=== PATIENT | female | born 1950 | race Asian ===

== ENCOUNTER 2024-12-11 03:24 | Inpatient (IN) | payer OTHER, SELFPAY ==
[2024-12-10 21:47] VITALS: BP 161/50; BMI 22.5
[2024-12-10 21:49] VITALS: BP 168/48
[2024-12-10 21:50] VITALS: BP 161/50
[2024-12-10 21:51] VITALS: BP 149/62
[2024-12-10 21:52] VITALS: BP 137/98
[2024-12-10 22:06] LABS: % Basophils 0.4 % (0-2); % Eosinophils 0.8 % (0-6); % Immature Granulocytes 0.4 % (0-0.5); % Lymphocytes 19.2 % (20.5-51.1); % Monocytes 10.4 % (1.7-9.3); % Neutrophils 68.8 % (42.2-75.2); Absolute Eosinophils 0.1 10^3/uL (0-0.7); Absolute Lymphocytes 1.9 10^3/uL (1.2-3.4); Absolute Neutrophils 6.7 10^3/uL (1.4-6.5); Hematocrit 32.8 % (37.0-47.0); Hemoglobin 10.7 g/dL (12.0-16.0); Mean Corp Hgb Conc. 32.6 g/dL (33.0-37.0); Mean Corpuscular Hgb 29.8 pg (27.0-31.0); Mean Corpuscular Volume 91.4 fL (81.0-99.0); Nucleated Red Blood Cells % 0 %; Platelet Count 441 10^3/uL (130-400); Red Blood Cell Count 3.59 10^6/uL (4.20-5.40); Red Cell Dist. Width 13.9 % (11.5-14.5); White Blood Cell Count 9.8 10^3/uL (4.8-10.8)
[2024-12-10 22:13] LABS: ALT (SGPT) 34 U/L (0-35); AST (SGOT) 43 U/L (14-36); Albumin 3.6 g/dl (3.5-5.0); Alkaline Phosphatase 97 U/L (38-126); Blood Urea Nitrogen 21 mg/dl (7-17); Calcium 9.3 mg/dl (8.4-10.2); Carbon Dioxide 28 mmol/L (22-30); Chloride 97 mmol/L (98-107); Estimated Creatinine Clearance 55 ml/min; Glucose 200 mg/dl (70-99); Potassium 3.9 mmol/L (3.5-5.1); Sodium 135 mmol/L (135-145); Total Bilirubin 0.3 mg/dl (0.2-1.3); Total Protein 6.2 g/dl (6.3-8.2); eGFR > 60.00
[2024-12-10 22:30] LABS: Troponin I 0.035 ng/ml
--- NOTE | 2024-12-10 22:53 | ED.GENMED ---
History of Present Illness
General
Chief Complaint: Breathing Problem
Source: patient
Time Seen by Provider: 12/10/24 22:43
History of Present Illness
History of Present Illness:
74-year-old female presents to the emergency room complaining of shortness of breath. Patient is currently at [facility] where she is receiving rehab after a hospitalization here at [place] for DKA, multiple areas of embolic stroke and acute
kidney injury among other issues. While at rehab she became suddenly short of breath today. She has pain in her chest. Pain is worse with deep inspiration. No fever. Patient denies any history of lung disease.
Phy Exam
Physical Exam
Physical Exam:
General: Awake, Alert, Oriented X3. No acute distress.
Vitals: unremarkable
Head: Atraumatic
Eyes: Pupils equal, EOMI
Throat: Airway intact, no exudates
Neck: Trachea midline
Lungs: Clear and equal b/l
Heart: Regular rate, no murmurs
Abd: Soft, Nontender, No pulsatile mass
Neuro: Grossly nonfocal
Skin: Warm, dry, no rash
Extremities: pulses equal b/l, no edema
Scores
Heart Failure Risk
Heart Failure Risk Score: Not Applicable
Course
Orders/Labs/Results
Orders:
Orders
12/10/24 21:45
Electrocardiogram (*1) Urgent
Reason for Study: Chest Pain
Cardiac Monitoring- Treatment ONCE
EKG- Treatment ONCE
12/10/24 21:53
CMP [Comprehensive Metabolic Panel] Urgent
Complete Blood Count/With Diff Urgent
NT-proBNP Urgent
Comment: ADD ON
Troponin I Urgent
12/10/24 22:54
CR Chest Portable - 1 View Urgent
Comment:
Reason For Exam: acute onset sob
Reason Study Needs to be Portable: Patient Unstable
12/11/24 00:30
CT Chest PE Study Urgent
Reason For Exam: acute onset sob
12/11/24 01:14
Ondansetron Injectable [Zofran] 4 mg IV NOW STA
Pantoprazole [Protonix IV] 80 mg IV NOW STA
12/11/24 03:03
Admit/Transfer Patient As Directed
Co-Sign Provider:
Level of Care: Inpatient admission
Assign to:: Telemetry
Physician / Group: hospitalist
Diagnosis: chest pain
Reason for Telemetry: Chest Pain syndromes
Date to Stop Telemetry: 12/13/24
Time to Stop Telemetry: 11:00
Reason for Hospitalization: dysphagia/gi dysmotility
Expected length of stay greater than two midnights?: Yes
ELOS- Estimated Length of Stay in days: 2
I certify the patient meets the requirements for IP care: Yes
PRN Pain Medication Management As Directed
May give lesser potent ordered pain med per pt: Yes
preference::
Protocol:: Medication orders for pain may be administered in a
manner that supports deferring to patient preference
when the pt is:
- Requesting an ordered lesser potent pain medication.
Least to most potent pain medications are defined
as: acetaminophen < NSAID < tramadol < opioids
(morphine, oxycodone, hydromorphone).
- Requesting a lesser dose of the same medication IF
ORDERED.
- Requesting a less intrusive route of administration
if both routes are prescribed by the provider (PO <
IV).
12/11/24 03:04
Code Status As Directed
Resuscitation Status: Full Code
12/11/24 04:03
HYDROmorphone [Dilaudid] 0.25 mg IV Q4HPRN PRN
Insulin Aspart Corrective Low [Novolog Flexpen-Low Resistance] See Protocol SC Q6H
Lactated Ringers [Lr] 1,000 ml IV 100 mls/hr
Ondansetron Injectable [Zofran] 4 mg IV Q6HPRN PRN
12/11/24 04:03
GASTROINTESTINAL CONSULT Routine
Consulting Provider: Jm Milner
Was physician already notified: Yes
Reason for consult: dysphagia, esophageal dilation filled w/ debris, as is stomach, bloody emes
Activity As Directed
Activity Level: With Assistance
Bedside Glucose Monitoring As Directed
Frequency: Q6H
Elevate HOB [Head of Bed-Restrictions] As Directed
Elevation Level: 45 degrees
INT (Intravenous Needle Therapy) As Directed
Comment: Place 2 IV catheters of the largest bore possible until stable
Pneumatic Compression Sleeves As Directed
Type: Knee high
Vital Signs As Directed
Frequency: Per unit guidelines
DX Deep Vein Thrombosis Video Routine
12/11/24 04:40
Type+Screen Urgent
Basic Metabolic Panel Routine
PTT Urgent
Comment: If not done in the ED
Prothrombin Time Routine
Troponin I Q6H
12/11/24 Breakfast
NPO
Allow oral meds: No
Allow clear liquids: Sips of Clears
NPO with Ice Chips: Yes
12/11/24 08:00
Pantoprazole [Protonix IV] 40 mg IV BID
12/11/24 10:03
Troponin I Q6H
12/11/24 11:15
H&H Q8H
12/11/24 16:03
Troponin I Q6H
12/11/24 19:15
H&H Q8H
12/13/24 11:00
DC Protocol for Telemetry ONCE
Abnormal Lab Results
12/10/24
21:53
RBC 3.59 L 10^6/uL
(4.20-5.40)
Hgb 10.7 L g/dL
(12.0-16.0)
Hct 32.8 L %
(37.0-47.0)
MCHC 32.6 L g/dL
(33.0-37.0)
Plt Count 441 H 10^3/uL
(130-400)
Absolute Neuts (auto) 6.7 H 10^3/uL
(1.4-6.5)
Absolute Monos (auto) 1.0 H 10^3/uL
(0.1-0.6)
Lymphocytes % 19.2 L %
(20.5-51.1)
Monocytes % 10.4 H %
(1.7-9.3)
Chloride 97 L mmol/L
(98-107)
BUN 21 H mg/dl
(7-17)
Creatinine 0.4 L mg/dL
(0.6-1.0)
Glucose 200 H mg/dl
(70-99)
AST 43 H U/L
(14-36)
Troponin I 0.035 H* ng/ml
Total Protein 6.2 L g/dl
(6.3-8.2)
12/10/24 21:53
12/10/24 21:53
Vital Signs
Initial and Last Documented VS:
Initial Vital Signs
Pulse Resp
101 32
12/10/24 21:45 12/10/24 21:45
Last Documented Vital Signs
Temp Pulse Resp BP Pulse Ox
97.9 F 117 24 130/91 100
12/11/24 04:19 12/11/24 04:19 12/11/24 04:19 12/11/24 04:19 12/11/24 04:19
MDM/Problems Addressed
Differential Diagnosis Includes:
Acute coronary syndrome, PE, pneumothorax, GERD
MDM/Problems Addressed:
Patient presents seemingly quite uncomfortable from chest pain. She is moaning and saying she is short of breath. Given her recent hospitalization I was concerned about PE. CT of the chest was performed. She has a turns out she has significant
dilation of the esophagus and the esophagus is filled with debris and liquid. Stomach also has these findings. Perhaps the patient has a gastric outlet obstruction. Patient will require hospitalization and GI workup.
*Radiology
Radiology exam reviewed: radiology read reviewed
*Pulse Oximetry
Patient hypoxic: no
*EKG
Interpreted by ED Provider?: Yes
Heart Rate: 99
Rate: normal
Rhythm: sinus
[place]: normal axis
Interval: normal interval
QRS Pattern: normal QRS
Ischemia: non-specific ST changes
*Technology Lab Teacher Interpretation
Rate: normal
Interpretation: normal
Rhythm: sinus
*Critical Care Note
Total Time (30-74mins, 75-104mins- exclusive of procedures): Not Applicable
ED Attending Note
-
Portions of this chart may have been created with voice recognition software.� Occasional wrong word or��sound alike� substitutions may have occurred due to the inherent limitations of voice recognition software.
Discharge Plan
Departure
Patient Disposition: Admit
Date of Disposition: 12/11/24
Time of Disposition: 02:46
Admit to: Med/Surg
Presentation/result/management discussed w/ accepting MD/DO: Hospitalist
Condition: Fair
Discharge Problem:
Chest pain, Esophageal abnormality, Hematemesis
Interventions
Interventions:
*Risk Screen - Suicide Last Done: 12/11/24 04:39
*General Assessment Last Done: 12/10/24 21:47
*Neglect/Abuse Screening Last Done: 12/10/24 21:47
ED- Fall Risk Assessment Last Done: 12/10/24 22:18
*ED COVID-19 Vaccine History Last Done: 12/10/24 21:47
*Nursing Disposition Last Done: 12/11/24 04:00
ED- Cardiac Assessment Last Done: 12/10/24 22:18
ED- Pulmonary Assessment Last Done: 12/10/24 22:18
Discharge Date and Time
Discharge Date/Time: 12/11/24 04:00
[2024-12-10 23:00] VITALS: BP 123/57
[2024-12-10 23:50] LABS: NT-proBNP 40.6 pg/ml
[2024-12-11] VITALS (12 sets, daily range): BP systolic 120–158; BP diastolic 45–94; BMI 21.8
[2024-12-11] MEDS: PROTONIX IV 80 MG IV (01:18)
[2024-12-11] MEDS: ZOFRAN 4 MG IV (01:25)
--- NOTE | 2024-12-11 01:32 | EDRN ---
Patient reported feeling sick, then started throwing up bright red blood including blood clots, informed Dr. Morales who was in to see and assess patient and meds were ordered and given.
--- NOTE | 2024-12-11 02:49 | HPS.HSE ---
Family Physician
-
Family Physician: NOT KNOW UNKNOWN - PT DOES
Chief Complaint
-
Chest discomfort and shortness of breath.
History of Present Illness
This is a 74-year-old female past medical history of insulin-dependent diabetes, hypertension, hyperlipidemia, recent CVA with residual left sided hemiparesis in the setting of sepsis due to urinary tract infection who now presents to the emergency
department from rehab facility with chest pain.
Patient reports sudden onset of chest discomfort this evening associated with nausea. She denied any diaphoresis. She denied any vomiting. Patient denies any abdominal pain. She denies any fevers or chills but states she always feels hot.
Patient denies having any headache. In the ED she was found to have esophageal dilation on imaging. She herself denies any history of GERD. She denies history of dysphagia or odynophagia. She denies any recent history of chest pain with food
ingestion but feels like the food is sitting in her abdomen for a while. Patient denies any melena or hematochezia. She denies any hematemesis.
During last admission which was complicated the patient will had a suspicion for GI bleed. Due to that she was not placed on Plavix for a stroke but only on aspirin. She is not on any anticoagulation. She denies starting any new medication
recently.
In the emergency department she was afebrile, blood pressure was 120/70 with a pulse of 115. She was satting 100% on room air. ECG showed normal sinus rhythm at a rate of 90 with a left axis deviation, no acute T wave changes. Troponin was 0.035.
CBC was unremarkable with hemoglobin unchanged from prior. Sodium 135 potassium 3.9 normal BUN and creatinine. A CT of the chest shows no evidence of PE but has dilated esophagus containing food debris throughout, stomach also filled with fluid
debris no visualized aspiration although recent aspiration risk.
While I was interviewing patient she had multiple episodes of nausea dry heaves and coughing up blood that appears to be coming from the upper esophagus. No coffee-ground's.
Medical History
Past Medical History
Past Medical History: Reports CVA, HTN and IDDM
Past Surgical History: Reports Other
Social History
Tobacco: Non-smoker
Alcohol: None
Drug: None
Personal:
Living: With Family
Employment: Retired
Family History
Family History: Not pertinent
Allergies / Home Medications
Allergies reflects when Allergies were last updated in [facility].
Home Medications with original date entered in [facility]
Allergy/Medication List:
Allergies
Allergy/AdvReac Type Severity Reaction Status Date / Time
No Known Allergies Allergy Verified 12/10/24 21:52
Home Medications
atorvastatin 40 mg tablet 40 mg PO DAILY 12/05/24
insulin glargine 100 unit/mL subcutaneous solution 23 unit SC HS 12/05/24
insulin lispro 100 unit/mL subcutaneous pen 1 sliding scale dose SC AC 12/05/24
insulin lispro 100 unit/mL subcutaneous pen 8 unit SC AC 12/05/24
losartan 25 mg tablet (Cozaar) 25 mg PO HS 12/05/24
metformin 500 mg tablet 500 mg PO DAILY 12/05/24
oxycodone 5 mg tablet 5 mg PO Q6HPRN PRN moderate pain 12/05/24
pantoprazole 40 mg tablet,delayed release 40 mg PO DAILY 12/05/24
polyethylene glycol 3350 17 gram oral powder packet (Miralax) 17 g PO DAILY 12/05/24
acetaminophen 325 mg tablet 650 mg PO Q4HPRN PRN mild pain 12/10/24
ascorbic acid (vitamin C) 500 mg tablet (Vitamin C) 500 mg PO DAILY 12/10/24
aspirin 81 mg chewable tablet 81 mg PO DAILY 12/10/24
clotrimazole 1 % topical cream 1 applic topical BID 12/10/24
docusate sodium 100 mg capsule (Colace) 100 mg PO BID 12/10/24
enoxaparin 40 mg/0.4 mL subcutaneous syringe 40 mg SC QPM 12/10/24
zinc sulfate 50 mg zinc (220 mg) capsule 50 mg PO DAILY 12/10/24
Review of Systems
-
History Source: Patient
Constitutional: Reports No Symptoms
EENT: Reports No Symptoms
Respiratory: Reports Hemoptysis and Trouble Breathing
Cardiac: Reports Chest Pain
Abdomen/GI: Reports Nausea and Vomiting; Denies Diarrhea, Constipated, Bloody Stools or Black Stools
: Reports No Symptoms
Musculoskeletal: Reports No Symptoms
Skin: Reports No Symptoms
Neurological: Reports No Symptoms
Endocrine: Reports No Symptoms
Hematologic/Lymphatic: Reports No Symptoms
Psych: Reports No Symptoms
Physical Exam
Vital Signs
Vital Signs
Temp Pulse Resp BP Pulse Ox
97.8 F 115 21 120/70 100
12/10/24 21:47 12/11/24 02:30 12/11/24 02:30 12/11/24 02:00 12/11/24 01:30
Physical Exam
General: Well Developed and No Apparent Distress
HEENT: NormoCephalic, Anicteric, Moist mucous membranes and Atraumatic
Respiratory: Clear
Cardiac: S1/S2, Regular Rhythm and Tachycardia
Breast: Deferred by me
GI: Soft, Non Tender, Non Distended and Normal Bowel Sounds
Rectal: Deferred by Provider
Genito-urinary: Deferred by me
Musculoskeletal: No Clubbing, No Cyanosis and No Edema
Skin: Warm
Neuro: AO x 3, Cranial Nerves Intact, No Sensory Deficits and Other (left sided weakness in upper and lower extremity); No Slurred Speech or Facial Droop
Hematologic/Lymphatic: No Lymphadenopathy
Psych: Calm
Laboratory Results
-
12/10/24 21:53
12/10/24 21:53
Laboratory Results
Total Bilirubin 0.3 mg/dl (0.2-1.3) 12/10/24 21:53
AST 43 U/L (14-36) H 12/10/24 21:53
ALT 34 U/L (0-35) 12/10/24 21:53
Alkaline Phosphatase 97 U/L (38-126) 12/10/24 21:53
Troponin I 0.035 ng/ml H* 12/10/24 21:53
Data Reviewed
-
CT Scan: Report Reviewed by me
Medical Tests (Nuc Med, Echo, EKG etc): Image Personally Visualized and interpreted
Lab Data: Labs Reviewed by me
Old Records: Reviewed
Impression/Plan
-
IMPRESSION:
74 y.o recently admitted with urosepsis complicated by acute bilateral infarcts left parietal�occipital infarcts and probable small right cerebellar infarct with mostly left sided weakness and currently on aspirin 81/statin presents to ED with
atypical chest pain associated with swallowing food but not water and found to have residual food debris in esophagus and stomach. ECG is non-ischemic. Troponin is 0.03. No PE. No aspiration pneumonia on CT. Afebrile. No evidence of
perforation or rupture, extraluminal gas or fluid collection.
PLAN:
1. Chest pain - Chest pain is likely related to the esophageal disease and possibly khoa saenz tear, no perforation. She is bringing up red blood mixed with clear fluid with vomiting. She does not have projectile vomiting. Trop 0.03 but
unlikely ischemic.
- admit to telemetry
- trend cardiac enzymes
- start pain control and antiemetics
- given solid material in esophagus and stomach, holding off any NG tube placement
- suspect khoa saenz tear, with food bezoa versus esophageal dysmotility or delayed gastric emptying
- no food or drinks
2. Esophageal dysmotility
- NPO for now
- clears and sips ok, no solid tablets
- GI consultation for possible EGD
- PPI IV bid for now
- antimetics as above
- gentle hydration
3. CVA - on aspirin statin
- meds on hold for now due to upper gi bleeding and npo
- serial examinations
4. DM II -
- hold metformin
- insulin sliding scale
DVT PPX - heparin sq
Code status - full code
--- NOTE | 2024-12-11 03:43 | EDRN ---
Helped patient with phone to call her
[2024-12-11] MEDS: LR 1000 IV ×2 (04:46→15:17)
[2024-12-11 05:14] LABS: APTT 29.9 Sec (23.4-35.0); INR 1.09; PT 14.4 Sec (11.4-14.6)
[2024-12-11 05:20] LABS: Blood Urea Nitrogen 39 mg/dl (7-17); Calcium 8.9 mg/dl (8.4-10.2); Carbon Dioxide 26 mmol/L (22-30); Chloride 99 mmol/L (98-107); Estimated Creatinine Clearance 55 ml/min; Glucose 418 mg/dl (70-99); Hematocrit 25.2 % (37.0-47.0); Hemoglobin 7.8 g/dL (12.0-16.0); Potassium 4.5 mmol/L (3.5-5.1); Sodium 134 mmol/L (135-145); eGFR > 60.00
[2024-12-11 05:32] LABS: Troponin I 0.037 ng/ml
--- NOTE | 2024-12-11 05:53 | PTCARENOTE ---
Addendum entered by Gretchen Suarez RN 12/11/24 06:09:
Patient's blood sugar- 418, updated house [employer]
Original Note:
Patient's hgb- 7.8 from 10.7. 97.9, 115,130/91,24,100 on 3L. Notified house provider. No new orders.
[2024-12-11 06:30] LABS: Glucose - Point of Care 387 mg/dl (70-99)
[2024-12-11] MEDS: NOVOLOG FLEXPEN-LOW RESISTANCE 5 UNITS SC (06:35)
--- NOTE | 2024-12-11 07:06 | CON.GI ---
Addendum entered and electronically signed by Jm Milner MD 12/11/24 12:29:
I saw and examined the patient.
The SUPERVISOR POST WAVE's note was reviewed and I agree with the note.
- chest pain /nausea/vomiting/hematemesis on admission . currently denies any symptoms
-CT with concern for distention of thoracic esophagus/stomach with retained food material
-anemia with drop after admission
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
-NIDDM with poorly controlled disease and recent hbg A1C 13.4 with recent DKA
-recent reported heme + stool
-recent fecal impaction and diarrhea with concern for overflow
-recent UTI
-hx NSAID use
-mild elevated troponin
plan
Patient currently denies any GI symptoms. Etiology for her admitting symptoms can be multifactorial-considering recent CVA/uncontrolled diabetes with possible gastroparesis/possible esophageal dysmotility/cannabis use etc. Hematemesis after
vomiting can be secondary to esophagitis versus Farhana-Garcia tear. Currently resolved.
I had a long discussion with the patient reviewing benefits and risk of EGD evaluation. No prior EGD or colonoscopy. patient will be at high risk with recent CVA 11/28/2024. Patient verbalized understanding and would like to hold off on future EGD
(understanding possibility of missing esophageal lesion including neoplasm) .
She would like to try liquid diet. Okay to start with clear liquid
Continue monitor H&H
Continue PPI twice daily for now
Good glycemic control
Avoid cannabis
will follow
Addendum entered and electronically signed by ROXANNE Vera 12/11/24 10:02:
pt with mild left sided weakness
Original Note:
Consultation
-
Date/Time Consultation Requested: 12/11/24 0430
Date/Time Consultation Performed: 12/11/24 0730
Requesting Provider: Beatriz Myrick MD
Performing Provider: Michelle Kriney, Jm OLIVEIRA MD
Reason for Consultation: nausea, vomiting abdominal CT
Medical History
Chief Complaint / HPI
Chief Complaint: nausea, vomiting, hematemesis
History of Present Illness:
Pt is a 74yo with hx HTN, hyperlipidemia, NIDDM with recent [facility] stay with several recent medical issues and treatment at [facility] including DKA with FBS 600's and hbg A1C 13.4 (admits to non compliance with medication), dark heme +
stools, diarrhea (c-diff neg), rectal pain fecal impaction, recent fungal infection, sepsis with ELIDIA, b/l hydro, UTI (ecoli), and change of mental status with CVA and left hemiph (11/28/24). Per rehabs notes pt was taking frequent NSAIDs prior to
admission with no documentation of any GI testing completed and denies prior EGD/colon. She was noted 11/28 with left hemiparesis and HCT noted evolving CVA. She now has been admitted to [facility] on 12/05. She presents to ER with onset of chest pain
with nausea. On admission CT Chest completed neg PE or dissection. Moderate dilation of the thoracic esophagus and stomach, with retained food material throughout the esophagus. Esophagus measures 3 cm in diameter. Findings may related to
esophageal motility disorder, intestinal obstruction, and/or obstructing lesion. Moderate coronary arterial calcification and mild bibasilar subsegmental atelectasis.
In review with patient she admits chest pain was 8/10 on admission now 1/10 and feeling much improved. She admits to vomiting prior to admission and noted some red blood with vomiting. She also admits to dark stools seen during recent
admission and constipation with impaction. She currently denies issues with abdominal pain,, diarrhea or constipation. No prior EGD or colonoscopy in past. 12/07 obstruction series with mild to moderate fecal residue.
Past Medical History
Past Medical History: CVA, HTN, Hypercholesterolemia, NIDDM and Other (UTI)
Social History
Tobacco: Former Smoker
Alcohol: Former
Drug: Marijuana (last 2 months ago )
Personal:
Living: With Family
Employment: Retired
Family History
Family History: Reviewed & Not Pertinent
Allergies / Home Medications
Allergy/AdvReac Type Severity Reaction Status Date / Time
No Known Allergies Allergy Verified 12/10/24 21:52
�Medication �Instructions �Recorded
atorvastatin 40 mg tablet 40 mg PO DAILY 12/05/24
insulin glargine 100 unit/mL 23 unit SC HS 12/05/24
subcutaneous solution
insulin lispro 100 unit/mL 1 sliding scale dose SC AC 12/05/24
subcutaneous pen
insulin lispro 100 unit/mL 8 unit SC AC 12/05/24
subcutaneous pen
losartan 25 mg tablet (Cozaar) 25 mg PO HS 12/05/24
metformin 500 mg tablet 500 mg PO DAILY 12/05/24
oxycodone 5 mg tablet 5 mg PO Q6HPRN PRN moderate pain 12/05/24
pantoprazole 40 mg tablet,delayed 40 mg PO DAILY 12/05/24
release
polyethylene glycol 3350 17 gram 17 g PO DAILY 12/05/24
oral powder packet (Miralax)
acetaminophen 325 mg tablet 650 mg PO Q4HPRN PRN mild pain 12/10/24
ascorbic acid (vitamin C) 500 mg 500 mg PO DAILY 12/10/24
tablet (Vitamin C)
aspirin 81 mg chewable tablet 81 mg PO DAILY 12/10/24
clotrimazole 1 % topical cream 1 applic topical BID 12/10/24
docusate sodium 100 mg capsule 100 mg PO BID 12/10/24
(Colace)
enoxaparin 40 mg/0.4 mL 40 mg SC QPM 12/10/24
subcutaneous syringe
zinc sulfate 50 mg zinc (220 mg) 50 mg PO DAILY 12/10/24
capsule
Review of Systems
-
History Source: Patient
Constitutional: Reports Weight Loss
EENT: Reports No Symptoms
Respiratory: Reports No Symptoms
Cardiac: Reports Chest Pain
Abdomen/GI: Reports Nausea, Vomiting, Diarrhea (recent now improved ), Constipated (recent now improved ) and Other (hematemesis )
: Reports No Symptoms
Musculoskeletal: Reports No Symptoms
Skin: Reports No Symptoms
Neurological: Reports Weakness and Other (recent left hemiparesis )
Endocrine: Reports No Symptoms
Hematologic/Lymphatic: Reports Bleeding
Vital Signs
Temp Pulse Resp BP Pulse Ox
97.9 F 117 24 130/91 100
12/11/24 04:19 12/11/24 04:19 12/11/24 04:19 12/11/24 04:19 12/11/24 04:19
Physical Exam
Exam
General: Well Developed, Well Nourished and No Apparent Distress
HEENT: Normocephalic and Anicteric
Respiratory: Clear
Cardiac: Other (tachy)
GI: Soft, Non Tender and Non Distended
Musculoskeletal: No Clubbing and No Cyanosis
Skin: Warm and Dry
Neuro: Awake, Alert and AO x 3
Psych: Calm
Results
WBC 9.8 10^3/uL (4.8-10.8) 12/10/24 21:53
Hgb 7.8 g/dL (12.0-16.0) L D 12/11/24 04:40
Hct 25.2 % (37.0-47.0) L 12/11/24 04:40
MCV 91.4 fL (81.0-99.0) 12/10/24 21:53
Plt Count 441 10^3/uL (130-400) H 12/10/24 21:53
Absolute Neuts (auto) 6.7 10^3/uL (1.4-6.5) H 12/10/24 21:53
PT 14.4 Sec (11.4-14.6) 12/11/24 04:40
INR 1.09 12/11/24 04:40
APTT 29.9 Sec (23.4-35.0) 12/11/24 04:40
Sodium 134 mmol/L (135-145) L 12/11/24 04:40
Potassium 4.5 mmol/L (3.5-5.1) 12/11/24 04:40
Chloride 99 mmol/L (98-107) 12/11/24 04:40
Carbon Dioxide 26 mmol/L (22-30) 12/11/24 04:40
BUN 39 mg/dl (7-17) H 12/11/24 04:40
Creatinine 0.6 mg/dL (0.6-1.0) 12/11/24 04:40
Calcium 8.9 mg/dl (8.4-10.2) 12/11/24 04:40
Total Bilirubin 0.3 mg/dl (0.2-1.3) 12/10/24 21:53
AST 43 U/L (14-36) H 12/10/24 21:53
ALT 34 U/L (0-35) 12/10/24 21:53
Alkaline Phosphatase 97 U/L (38-126) 12/10/24 21:53
Diagnostic Image Results:
12/11/24 CT Chest PE Study
1. No evidence of pulmonary embolism or thoracic aortic dissection.
2. Moderate dilation of the thoracic esophagus and stomach, with retained food material throughout the esophagus. Esophagus measures 3 cm in diameter. Findings may related to esophageal motility disorder, intestinal obstruction, and/or obstructing
lesion. Consider upper GI endoscopy.
3. Moderate coronary arterial calcification. Please correlate with symptoms of and risk factors for coronary artery disease, with further workup as clinically appropriate.
4. Mild bibasilar subsegmental atelectasis, otherwise clear lungs.
12/10/24- CXR
1. Mild bibasilar subsegmental atelectasis.
2. Otherwise clear lungs.
CR Obstruct Series W/pa Chest
No evidence of bowel obstruction or ileus. No free air. Mild to moderate fecal residue.
Probable enlarged fibroid uterus. Consider follow-up ultrasound.
Prior GI Procedures:
EGD: none
Colonoscopy: none
Assessment / Plan
-
Pt is a 74yo with hx HTN, hyperlipidemia, NIDDM with recent [facility] stay with several recent medical issues and treatment at [facility] including DKA with FBS 600's and hbg A1C 13.4 (admits to non compliance with medication), dark heme +
stools, diarrhea (c-diff neg), rectal pain fecal impaction, recent fungal infection, sepsis with ELIDIA, b/l hydro, UTI (ecoli), and change of mental status with CVA and left hemiph (11/28/24). Per rehabs notes pt was taking frequent NSAIDs prior to
admission with no documentation of any GI testing completed and denies prior EGD/colon. She was noted 11/28 with left hemiparesis and HCT noted evolving CVA. She now has been admitted to [facility] on 12/05. She presents to ER with onset of chest pain
with nausea. On admission CT Chest completed neg PE or dissection. Moderate dilation of the thoracic esophagus and stomach, with retained food material throughout the esophagus. Esophagus measures 3 cm in diameter. Findings may related to
esophageal motility disorder, intestinal obstruction, and/or obstructing lesion. Moderate coronary arterial calcification and mild bibasilar subsegmental atelectasis.
-chest pain
-nausea/vomiting/hematemesis
-CT with concern for distention of thoracic esophagus/stomach with retained food material
-anemia with drop after admission
-recent CVA
-NIDDM with poorly controlled disease and recent hbg A1C 13.4 with recent DKA
-recent reported heme + stool
-recent fecal impaction and diarrhea with concern for overflow
-recent UTI
-hx NSAID use
-mild elevated troponin
other med problems:
-HTN
-hyperlipidemia
occasional Marijuana use
PLAN:
etiology symptoms with chest pain, nausea, hematemesis with concern for gastroparesis with nausea/vomiting MW tear with marked uncontrolled DM, UGI bleed- gastritis (some drop in hbg and elevated BUN), food impaction, underlying malignant process
vs other
reviewed and offered EGD with recent hematemesis -- reviewed risk/benefit with recent CVA
pt wishes to hold off-- she is aware if not proceeding malignancy could be missed --
Pt is agreeable to follow up outpatient when improved to discuss vs consider IP if further vomiting or drop in hbg
trend hbg with some drop after admission 10.7- 7.89 for repeat at 11:15 this am
can also consider formal gastric emptying scan to rule out gastroparesis
will trial clear diet and advance to gastroparesis diet as tolerated
if persist vomiting consider adding reglan
add miralax daily with recent fecal impaction to prevent constipation
cont PPI BiD
discussed need for continued optimization of glucose control as FBS still in 400's this am as likely underlying gastroparesis
also discussed avoidance of marijuana use -- as will add to hyperemesis issue ( last use 2 months ago)
trend troponin with increase on admission
consider f/u US per medical team with enlarged fibroid on recent abdominal imaging
-
-
Thank you for consultation and allowing me to participate in the patient's care. Please call the refrigeration insulator GI physician during the after hours with any questions or concerns.
[2024-12-11] MEDS: PROTONIX IV 40 MG IV ×2 (08:30→19:54)
[2024-12-11] MEDS: NSS (PRESERVATIVE FREE) 10 ML IV ×2 (08:31→19:54)
--- NOTE | 2024-12-11 10:21 | PTCARENOTE ---
Family member of this pt called unit for an update on her, UC informed her that she was not on the contact list. She asked that the primary contact be updated, called primary contact, voicemail left.
[2024-12-11 10:33] LABS: Glucose - Point of Care 320 mg/dl (70-99)
[2024-12-11] MEDS: MIRALAX 17 GRAMS PO (10:44)
[2024-12-11] MEDS: NOVOLOG FLEXPEN-LOW RESISTANCE 4 UNITS SC (10:45)
[2024-12-11 11:18] LABS: Hemoglobin 7.5 g/dL (12.0-16.0)
[2024-12-11 11:48] LABS: Troponin I 0.048 ng/ml
--- NOTE | 2024-12-11 13:02 | W.PN.HOSP.TC ---
Addendum entered and electronically signed by Alfonso Springer DO 12/11/24 13:07:
#elevated troponin
-Likely nonischemic myocardial injury
-Did have CP but more likely esophageal in nature
-No ECG changes, troponin trend not consistent with ACS
-Will trend troponin to peak with serial ECG
Original Note:
Today's Communication/Plan
-
Bowel regimen per GI
CLD
Repeat CBC in afternoon
Hemoglobin goal >7
Assessment / Plan
Assessment / Plan
#GI dysmotility/bezoar
-Differentials include but are not limited to diabetic gastroparesis versus esophageal dysmotility versus neurologic
-CT scan with distention of the thoracic esophagus and stomach with retained food
-No NGT placed due to significant solid component of retained food matter
-Was seen by GI this morning, patient deferred against EGD; started on bowel regimen and PPI
Plan
-C/W Bowel regimen per GI
-C/W PPI twice daily IV
-Consider EGD if patient amenable
-Serial abd exams, CLD
#Acute on chronic normocytic anemia
-Hemoglobin dropped from near 11-7.8 after admission
-No obvious signs of rectal bleeding though is high risk with bezoar
-Was started on IV PPI twice daily, currently on CLD
-Evaluated by GI, patient does not want EGD now as above
Plan
-Type and cross obtained, consent for blood obtained
-Maintain 2 large peripheral bore IVs
-Continue IV PPI twice daily
-Repeat CBC at 3 PM, transfuse for hemoglobin <7
#Type 2 diabetes mellitus
-Recent A1c >13%; no documented microvascular disease though likely
-Possibly with diabetic gastroparesis due to the above issues
-Home medications include Lantus, lispro, ISS, metformin
-Continued on insulin regimen with sliding scale here
-BG goal 140-180
#Primary HTN
-Home medications include losartan 25 mg
-No known history of hypertensive systemic disease
-Blood pressure currently adequate
#HLD
-Likely ASCVD history with CVA, presumed cerebrovascular etiology
-Home medication includes high intensity
#H/O CVA
-Recent hospitalizations for CVA complicated by left hemiparesis
-Suspect this may be contributing to her GI dysmotility as above
-Home medications include aspirin and high intensity statin
-No history of AF/AFL; presumed cerebrovascular cause
DVT prophylaxis: SCDs
Diet: CLD for now
CODE STATUS: Full
Anticipated Discharge: > 48 hours
Subjective/Interval History
-
Date of Service: December 11, 2024
Seen and examined at the bedside. No acute events reported overnight. AFVSS.
Was seen by GI this morning and offered EGD which she does not want. Started on bowel regimen. Hemoglobin did drop from near 11-7.8. Type and cross obtained as was consent for blood
Denies any new complaints. States she feels generally well. Denies history of dysphagia
Objective Data
-
Labs:
Laboratory Results
12/11/24 12/11/24 12/11/24
04:40 11:05 15:00
WBC Pending
Hgb 7.8 L D 7.5 L Pending
Hct 25.2 L 23.0 L Pending
Plt Count Pending
PT 14.4
INR 1.09
APTT 29.9
Sodium 134 L
Potassium 4.5
Chloride 99
Carbon Dioxide 26
BUN 39 H
Creatinine 0.6
Glucose 418 H
Calcium 8.9
12/11/24
19:15
WBC
Hgb Pending
Hct Pending
Plt Count
PT
INR
APTT
Sodium
Potassium
Chloride
Carbon Dioxide
BUN
Creatinine
Glucose
Calcium
Vital Signs:
Vital Signs
Temp Pulse Resp BP Pulse Ox
98.3 F 106 18 130/48 100
12/11/24 11:31 12/11/24 11:31 12/11/24 11:31 12/11/24 11:31 12/11/24 11:31
Review of Systems
-
History Source: Patient
All other systems: Reviewed and negative
Physical Exam
-
General: Well Developed, No Apparent Distress, Comfortable and Other (Frail-appearing)
HEENT: Normocephalic, Atraumatic, Moist Mucous Membranes and Anicteric
Respiratory: Clear to Auscultation and Non Labored Respirations
Cardiac: S1/S2 and Tachycardic; Negative Irregular Rhythm, Murmur, Rub or Gallop
GI: Soft, Nontender, Nondistended and Normal Bowel Sounds
Musculoskeletal: No Clubbing, No Cyanosis and No Edema
Skin: Warm, Dry and Normal Turgor; Negative Rash
Neuro: AO x 3 and Nonfocal/Grossly Intact
Psych: Calm
Data Reviewed
-
Labs: Labs Reviewed by me and Discussed with Physician (Gastroenterology)
--- NOTE | 2024-12-11 14:55 | CM ---
Reviewed the chart notes and spoke with the patient and her spouse at the bedside. The patient resides with her spouse in a two story home with one step to enter. The patient reports no DME/VN/SNF. The patient confirmed her PCP is Dr. Sincere Rogel
Lew Ireland and pharmacy of choice is [facility]. CM continues to be available to patient/family and is monitoring medical plan for needs at discharge.
Plan: Discharge to home when medically stable. No needs anticipated at this time.
[2024-12-11 17:16] LABS: Glucose - Point of Care 456 mg/dl (70-99)
[2024-12-11 17:18] LABS: Glucose - Point of Care 492 mg/dl (70-99)
[2024-12-11 17:42] LABS: Hematocrit 21.6 % (37.0-47.0)
[2024-12-11 17:52] LABS: Hematocrit 21.5 % (37.0-47.0); Hemoglobin 6.9 g/dL (12.0-16.0); Mean Corp Hgb Conc. 32.1 g/dL (33.0-37.0); Mean Corpuscular Hgb 29.5 pg (27.0-31.0); Mean Corpuscular Volume 91.9 fL (81.0-99.0); Mean Platelet Volume 9.2 fL (7.4-10.4); Platelet Count 346 10^3/uL (130-400); Red Blood Cell Count 2.34 10^6/uL (4.20-5.40); Red Cell Dist. Width 14.1 % (11.5-14.5); White Blood Cell Count 6.4 10^3/uL (4.8-10.8)
[2024-12-11 17:58] LABS: Glucose 500 mg/dl (70-99)
[2024-12-11 18:08] LABS: Troponin I 0.055 ng/ml
[2024-12-11] MEDS: NOVOLOG FLEXPEN-LOW RESISTANCE SC (18:15)
[2024-12-11] MEDS: NOVOLOG FLEXPEN 10 UNITS SC (18:16)
--- NOTE | 2024-12-11 18:18 | W.PN.UPDATE ---
Update Note
Progress Note Update
Notified by RN that patient blood glucose is above higher range on fingerstick, BMP check showing blood glucose of 500
10 units of NovoLog insulin ordered, recheck within 2 hours and likely will require redosing based on the number
Premeal insulin of NovoLog 5 units AC ordered
Also patient have hemoglobin of 6.9, 1 unit of PRBC ordered
--- NOTE | 2024-12-11 18:47 | PTCARENOTE ---
Stat venous glucose ordered for RR high, came back at 500. MD made aware, 10 units insulin ordered and administered. Oncoming RN made aware of future fingersticks that are needed. Hgb also 6.9, made aware, 1 unit of PRBC ordered.
[2024-12-11 20:29] LABS: Glucose - Point of Care 442 mg/dl (70-99)
[2024-12-11 21:05] LABS: Glucose 400 mg/dl (70-99)
[2024-12-11 21:34] LABS: ALT (SGPT) 31 U/L (0-35); AST (SGOT) 34 U/L (14-36); Albumin 2.8 g/dl (3.5-5.0); Alkaline Phosphatase 76 U/L (38-126); Blood Urea Nitrogen 27 mg/dl (7-17); Calcium 8.2 mg/dl (8.4-10.2); Carbon Dioxide 26 mmol/L (22-30); Chloride 97 mmol/L (98-107); Estimated Creatinine Clearance 55 ml/min; Glucose 406 mg/dl (70-99); Sodium 129 mmol/L (135-145); Total Bilirubin 0.2 mg/dl (0.2-1.3); eGFR > 60.00
[2024-12-11] MEDS: NOVOLOG FLEXPEN 6 UNITS SC (21:52)
[2024-12-11 22:50] LABS: Troponin I 0.054 ng/ml
[2024-12-12] VITALS (8 sets, daily range): BP systolic 118–148; BP diastolic 49–59; PULSE 90–94; O2SAT 100
[2024-12-12 00:20] LABS: Glucose - Point of Care 265 mg/dl (70-99)
[2024-12-12] MEDS: LR 1000 IV (02:23)
--- NOTE | 2024-12-12 03:22 | PTCARENOTE ---
Stat venous glucose ordered for RR high, came back at 406. REAL ESTATE ATTORNEY made aware, 6 units of insulin ordered and administered. 2 hour glucose recheck came back at 265
[2024-12-12 06:45] LABS: Glucose - Point of Care 304 mg/dl (70-99)
[2024-12-12] MEDS: NOVOLOG FLEXPEN-LOW RESISTANCE 4 UNITS SC (07:56)
[2024-12-12] MEDS: MIRALAX PO (07:57)
[2024-12-12] MEDS: PROTONIX IV 40 MG IV ×2 (07:57→19:57)
[2024-12-12] MEDS: NSS (PRESERVATIVE FREE) 10 ML IV ×2 (07:58→19:57)
[2024-12-12 08:07] LABS: % Eosinophils 0.7 % (0-6); % Immature Granulocytes 0.5 % (0-0.5); % Lymphocytes 14.5 % (20.5-51.1); % Monocytes 15.9 % (1.7-9.3); % Neutrophils 67.4 % (42.2-75.2); Absolute Basophils 0.1 10^3/uL (0-0.2); Absolute Lymphocytes 0.9 10^3/uL (1.2-3.4); Absolute Monocytes 0.9 10^3/uL (0.1-0.6); Absolute Neutrophils 3.9 10^3/uL (1.4-6.5); Hematocrit 24.9 % (37.0-47.0); Mean Corp Hgb Conc. 32.1 g/dL (33.0-37.0); Mean Corpuscular Hgb 28.2 pg (27.0-31.0); Mean Corpuscular Volume 87.7 fL (81.0-99.0); Mean Platelet Volume 8.8 fL (7.4-10.4); Nucleated Red Blood Cells % 0 %; Platelet Count 281 10^3/uL (130-400); Red Blood Cell Count 2.84 10^6/uL (4.20-5.40); Red Cell Dist. Width 16.8 % (11.5-14.5); White Blood Cell Count 5.9 10^3/uL (4.8-10.8)
[2024-12-12 08:30] LABS: Troponin I 0.046 ng/ml
--- NOTE | 2024-12-12 09:19 | W.PN.GI.CBS2 ---
Today's Communication / Plan
-
full liquid diet
monitor Hb
Assessment / Plan
-
Pt is a 74yo with hx HTN, hyperlipidemia, NIDDM with recent [facility] stay with several recent medical issues and treatment at [facility] including DKA with FBS 600's and hbg A1C 13.4 (admits to non compliance with medication), dark heme +
stools, diarrhea (c-diff neg), rectal pain fecal impaction, recent fungal infection, sepsis with ELIDIA, b/l hydro, UTI (ecoli), and change of mental status with CVA and left hemiph (11/28/24). Per rehabs notes pt was taking frequent NSAIDs prior to
admission with no documentation of any GI testing completed and denies prior EGD/colon. She was noted 11/28 with left hemiparesis and HCT noted evolving CVA. She now has been admitted to [facility] on 12/05. She presents to ER with onset of chest pain
with nausea. On admission CT Chest completed neg PE or dissection. Moderate dilation of the thoracic esophagus and stomach, with retained food material throughout the esophagus. Esophagus measures 3 cm in diameter. Findings may related to
esophageal motility disorder, intestinal obstruction, and/or obstructing lesion. Moderate coronary arterial calcification and mild bibasilar subsegmental atelectasis.
- chest pain /nausea/vomiting/hematemesis on admission . currently denies any symptoms
-CT with concern for distention of thoracic esophagus/stomach with retained food material
-anemia with drop after admission
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
-NIDDM with poorly controlled disease and recent hbg A1C 13.4 with recent DKA
-recent reported heme + stool
-recent fecal impaction and diarrhea with concern for overflow
-recent UTI
-hx NSAID use
-mild elevated troponin
plan
Patient currently denies any GI symptoms. Etiology for her admitting symptoms can be multifactorial-considering recent CVA/uncontrolled diabetes with possible gastroparesis/possible esophageal dysmotility/cannabis use etc. Hematemesis after
vomiting can be secondary to esophagitis versus Farhana-Garcia tear. Currently resolved. No further overt GI bleeding . hb was 6.9 yesterday s/p 1 unit PRBC with Hb of 8 this am .
I discussed again with the patient reviewing benefits and risk of EGD evaluation. No prior EGD or colonoscopy. patient will be at high risk with recent CVA 11/28/2024. Patient verbalized understanding and would like to hold off on future EGD
(understanding possibility of missing esophageal lesion including neoplasm) . Discussed with anesthesia patient will be high risk - ASA4 for EGD with sedation
full liquid diet as tolerated
Continue monitor H&H
Continue PPI twice daily
Good glycemic control as per medical team (BS in 400 's )
Avoid cannabis
will follow
Total Time Spent with Patient (in minutes): 35
Subjective
Subjective
Date of Service: December 12, 2024
tolerating CLD. Denies any overt GI bleed . S/P 1 unit PRBC
Objective
Data Reviewed
Laboratory Data:
Laboratory Results
12/12/24 07:53
12/11/24 20:48
Laboratory Results
PT 14.4 Sec (11.4-14.6) 12/11/24 04:40
INR 1.09 12/11/24 04:40
APTT 29.9 Sec (23.4-35.0) 12/11/24 04:40
Total Bilirubin 0.2 mg/dl (0.2-1.3) 12/11/24 20:48
AST 34 U/L (14-36) 12/11/24 20:48
ALT 31 U/L (0-35) 12/11/24 20:48
Alkaline Phosphatase 76 U/L (38-126) 12/11/24 20:48
Vital Signs and I&O:
Vital Signs
Temp Pulse Resp BP Pulse Ox
97.7 F 91 18 120/56 100
12/12/24 07:33 12/12/24 07:33 12/12/24 07:33 12/12/24 07:33 12/12/24 07:33
I&O
12/11/24 12/12/24 12/13/24
06:59 06:59 06:59
Intake Total 4160 / 4160
Balance 4160 / 4160
Physical Exam
Physical Exam
GI: Soft, Non Distended and Non Tender
[2024-12-12] MEDS: NSS 1000 IV ×2 (09:43→22:10)
--- NOTE | 2024-12-12 10:24 | CM ---
Reviewed the chart notes. Patient diet advanced to full liquid. Patient currently on O2 @ 3L/min. CM continues to be available to patient/family and is monitoring medical plan for needs at discharge.
Plan: Discharge plans will depend on the patient's progress. If not able to wean from O2 will need home O2 evaluation and set-up. If able to wean from O2, no needs anticipated.
--- NOTE | 2024-12-12 11:15 | W.PN.HOSP.TC ---
Addendum entered and electronically signed by Alfonso Springer DO 12/12/24 14:34:
CDI: Acute blood loss anemia superimposed on chronic anemia
Original Note:
Today's Communication/Plan
-
Advance to full liquid diet per GI
Continue IV PPI and trend CBC
Resume home Lantus, increase mealtime insulin
Blood glucose goal 140-180
Bowel regimen
Assessment / Plan
Assessment / Plan
#GI dysmotility/bezoar
-Differentials include diabetic gastroparesis, neurologic peristaltic deficits from recent stroke
-CT scan with distention of the thoracic esophagus and stomach with retained food
-No NGT placed due to significant solid component of retained food matter
-GI following, patient deferred against EGD; started on bowel regimen and PPI
-Remains with soft abdomen, denies any symptoms of abdomen or chest pain
-Has remained hemodynamically stable, no signs of aspiration
Plan
-C/W Bowel regimen per GI
-C/W PPI twice daily IV
-Consider EGD at GI discretion
-Serial abd exams
-Advance diet to full liquid
#Acute on chronic normocytic anemia
#Hematemesis from likely Farhana-Garcia tear
-Hemoglobin dropped from near 11-76.9 after admission; s/p 1 unit with hemoglobin 8
-Patient did have hematemesis prior to arrival concerning for Farhana-Garcia tear
-No obvious signs of rectal bleeding or recurrence of hematemesis here
-Was started on IV PPI twice daily
-Evaluated by GI, no plan for EGD as of now
Plan
-Continue IV PPI twice daily
-Transfuse for hemoglobin <7
-Monitor bowel movements
#Type 2 diabetes mellitus
-Recent A1c >13%; no documented microvascular disease though likely
-Possibly with diabetic gastroparesis due to the above issues, persistent hyperglycemia
-Home medications include Lantus, lispro, ISS, metformin; also on high intensity statin
-Home Lantus was initially held, likely for n.p.o. status on admission
Plan
-Resume home Lantus, increase mealtime insulin to 10 units
-Continued with sliding scale and uptitrate as needed
-BG goal 140-180
-Hypoglycemic precaution
#Primary HTN
-Home medications include losartan 25 mg
-No known history of hypertensive systemic disease
-Blood pressure currently adequate
#HLD
-Likely ASCVD history with CVA, presumed cerebrovascular etiology
-Home medication includes high intensity
#H/O CVA
-Recent hospitalizations for CVA complicated by left hemiparesis
-Suspect this may be contributing to her GI dysmotility as above
-Home medications include aspirin and high intensity statin
-No history of AF/AFL; presumed cerebrovascular cause
DVT prophylaxis: SCDs
Diet: Full liquids
CODE STATUS: Full Code
Anticipated Discharge: > 48 hours
Subjective/Interval History
-
Date of Service: December 12, 2024
Seen and examined at the bedside. No acute events reported overnight. AFVSS this morning.
Blood glucose remains elevated, resumed her on her home Lantus 23 units nightly and increase mealtime insulin to 10 units.
Received 1 unit PRBC yesterday for hemoglobin 6.9, hemoglobin up to 8.0 this morning
Patient denies any new complaints. Denies hematemesis or other sources of bleeding. Denies abdomen pain, states she had a bowel movement yesterday
Objective Data
-
Labs:
Laboratory Results
12/12/24
07:53
WBC 5.9
Hgb 8.0 L
Hct 24.9 L
Plt Count 281
Vital Signs:
Vital Signs
Temp Pulse Resp BP Pulse Ox
97.7 F 91 18 120/56 100
12/12/24 07:33 12/12/24 07:33 12/12/24 07:33 12/12/24 07:33 12/12/24 07:33
I&O
12/11/24 12/12/24 12/13/24
06:59 06:59 06:59
Intake Total 4160 / 4160
Balance 4160 / 4160
Review of Systems
-
History Source: Patient
All other systems: Reviewed and negative
Physical Exam
-
General: Well Developed, No Apparent Distress, Comfortable and Other (Thin and frail appearing)
HEENT: Normocephalic, Atraumatic, Moist Mucous Membranes and Anicteric
Respiratory: Clear to Auscultation and Non Labored Respirations
Cardiac: Regular Rhythm and S1/S2; Negative Murmur, Rub or Gallop
GI: Soft, Nontender, Nondistended, Normal Bowel Sounds and No Hepatosplenomegaly
Musculoskeletal: No Clubbing, No Cyanosis and No Edema
Skin: Warm and Dry; Negative Rash
Neuro: AO x 3 and Other (Chronic left-sided sensorimotor deficits; no new FND)
Psych: Calm
Data Reviewed
-
Labs: Labs Reviewed by me, Discussed with Physician (Gastroenterology) and Discussed with Patient
[2024-12-12 12:36] LABS: Glucose - Point of Care 224 mg/dl (70-99)
[2024-12-12] MEDS: NOVOLOG FLEXPEN 10 UNITS SC ×2 (12:55→17:01)
[2024-12-12] MEDS: NOVOLOG FLEXPEN-LOW RESISTANCE 2 UNITS SC (12:55)
[2024-12-12 13:39] LABS: Troponin I 0.043 ng/ml
--- NOTE | 2024-12-12 14:05 | PN.CDI ---
CDI
- -
CDI:
Physician Documentation Request
Admit Date: 12/11/24 03:24
Dear Doctor Gian,
Please review the following and provide your response in the progress notes.
Clinical Indicators:
- 12/12 PN 'Acute on chronic normocytic anemia'
- 'Hematemesis from likely Farhana-Garcia tear...Patient did have hematemesis prior to arrival'
- ED RN note 'started throwing up bright red blood including blood clots'
- 1 unit PRBC given
Laboratory Tests
12/10/24 12/11/24 12/11/24
21:53 04:40 11:05
Hgb 10.7 L 7.8 L D 7.5 L
12/11/24 12/11/24 12/12/24
17:29 17:29 07:53
Hgb 6.9 L* 7.0 L 8.0 L
Please further specify the type of acute anemia
Acute blood loss anemia with baseline chronic anemia
Other (please specify)
Use of terms such as suspected, likely, concern for, or probable (associated with a specific diagnosis that is being evaluated, monitored, or treated as if it exists) are acceptable and can be coded in the inpatient setting, when documented at the
time of discharge.
Thank you,
Davonte Briscoe RN
CDI Specialist
Please use your independent medical judgment in providing your response.
[2024-12-12 17:01] LABS: Glucose - Point of Care 292 mg/dl (70-99)
[2024-12-12] MEDS: NOVOLOG FLEXPEN-LOW RESISTANCE 3 UNITS SC (17:01)
[2024-12-12 21:10] LABS: Glucose - Point of Care 88 mg/dl (70-99)
[2024-12-12] MEDS: LANTUS 0.23 UNITS SC (21:35)
[2024-12-13] VITALS (8 sets, daily range): BP systolic 94–137; BP diastolic 51–60; BMI 23.2
[2024-12-13 06:44] LABS: % Basophils 1.4 % (0-2); % Eosinophils 2.3 % (0-6); % Immature Granulocytes 0.5 % (0-0.5); % Lymphocytes 26.5 % (20.5-51.1); % Monocytes 17.7 % (1.7-9.3); % Neutrophils 51.6 % (42.2-75.2); Absolute Basophils 0.1 10^3/uL (0-0.2); Absolute Eosinophils 0.1 10^3/uL (0-0.7); Absolute Lymphocytes 1.2 10^3/uL (1.2-3.4); Absolute Monocytes 0.8 10^3/uL (0.1-0.6); Absolute Neutrophils 2.2 10^3/uL (1.4-6.5); Hematocrit 25.4 % (37.0-47.0); Hemoglobin 8.1 g/dL (12.0-16.0); Mean Corp Hgb Conc. 31.9 g/dL (33.0-37.0); Mean Corpuscular Hgb 28.9 pg (27.0-31.0); Mean Corpuscular Volume 90.7 fL (81.0-99.0); Mean Platelet Volume 9.1 fL (7.4-10.4); Nucleated Red Blood Cells % 0.5 %; Platelet Count 284 10^3/uL (130-400); Red Cell Dist. Width 16.8 % (11.5-14.5); White Blood Cell Count 4.3 10^3/uL (4.8-10.8)
[2024-12-13 07:15] LABS: Blood Urea Nitrogen 6 mg/dl (7-17); Calcium 7.9 mg/dl (8.4-10.2); Carbon Dioxide 25 mmol/L (22-30); Chloride 103 mmol/L (98-107); Estimated Creatinine Clearance 55 ml/min; Glucose 180 mg/dl (70-99); Iron 32 ug/dl (37-170); Potassium 3.7 mmol/L (3.5-5.1); Sodium 137 mmol/L (135-145); eGFR > 60.00
[2024-12-13 07:24] LABS: Percent Saturation 10 % (20-50); Total Iron Binding Capacity 320 ug/dl (265-497)
[2024-12-13 07:41] LABS: Glucose - Point of Care 184 mg/dl (70-99)
[2024-12-13] MEDS: NOVOLOG FLEXPEN SC (08:10)
[2024-12-13] MEDS: NSS (PRESERVATIVE FREE) IV (08:14)
[2024-12-13] MEDS: NOVOLOG FLEXPEN-LOW RESISTANCE SC (08:14)
[2024-12-13] MEDS: MIRALAX PO (08:14)
[2024-12-13] MEDS: PROTONIX IV IV (08:15)
[2024-12-13 08:19] LABS: Folate > 20.0 ng/ml (2.76-20); Vitamin B12 961 pg/ml (239-931)
--- NOTE | 2024-12-13 10:30 | W.PN.HOSP.TC ---
Today's Communication/Plan
-
Transition to oral PPI
Trend CBC here
Low residue diet
Encourage SNF versus inpatient rehab
Possible discharge home with PT if refusing rehab placement
Assessment / Plan
Assessment / Plan
#GI dysmotility/bezoar
-Differentials include diabetic gastroparesis, neurologic peristaltic deficits from recent stroke
-CT scan with distention of the thoracic esophagus and stomach with retained food
-No NGT placed due to significant solid component of retained food matter
-GI following, patient deferred against EGD; started on bowel regimen and PPI
-Remains with soft abdomen, denies any symptoms of abdomen or chest pain
-Has remained hemodynamically stable, no signs of aspiration
Plan
-C/W Bowel regimen per GI
-Transition to oral PPI twice daily
-Serial abd exams
-Advance to regular, low residue
#Acute on chronic normocytic anemia
#Hematemesis from likely Farhana-Garcia tear
-Hemoglobin dropped from near 11-76.9 after admission; s/p 1 unit with hemoglobin 8
-Patient did have hematemesis prior to arrival concerning for Farhana-Garcia tear
-No obvious signs of rectal bleeding or recurrence of hematemesis here
-Evaluated by GI, no plan for EGD as of now
-Transitioned to PO PPI as above
#Type 2 diabetes mellitus
-Recent A1c >13%; no documented microvascular disease though likely
-Possibly with diabetic gastroparesis due to the above issues, persistent hyperglycemia
-Home medications include Lantus, lispro, ISS, metformin; also on high intensity statin
-Home Lantus was initially held, likely for n.p.o. status on admission
-Initially had significant hyperglycemia though improved when resumed on home Lantus
-Blood glucose goal 140-180, avoid hypoglycemia
#Primary HTN
-Home medications include losartan 25 mg
-No known history of hypertensive systemic disease
-Blood pressure currently adequate
#HLD
-Likely ASCVD history with CVA, presumed cerebrovascular etiology
-Home medication includes high intensity
#H/O CVA
-Recent hospitalizations for CVA complicated by left hemiparesis
-Suspect this may be contributing to her GI dysmotility as above
-Home medications include aspirin and high intensity statin
-No history of AF/AFL; presumed cerebrovascular cause
DVT prophylaxis: SCDs
Diet: Low residue
CODE STATUS: Full Code
Disposition: Pending, patient wants to go home today however family to speak with and encourage inpatient rehab versus SNF
Anticipated Discharge: Within 24 hours
Subjective/Interval History
-
Date of Service: December 13, 2024
Seen and examined at the bedside. No acute events reported overnight. AFVSS this morning on room air
Hemoglobin stable following unit of blood. 8.0 yesterday and 8.1 today.
As of this morning she was refusing all medications and demanding to be discharged home. She is approaching medical stability though has significant functional deficits from her recent stroke. I spoke with her daughter Evi and her over
the phone, they are going to speak with the patient and try to convince her to go to rehab. I did let them know that she is medically confident to make her own decisions and we are unable to force her to go.
Patient otherwise denies any complaints and states she feels very well
Objective Data
-
Labs:
Laboratory Results
12/13/24
05:57
WBC 4.3 L
Hgb 8.1 L
Hct 25.4 L
Plt Count 284
Sodium 137 D
Potassium 3.7
Chloride 103
Carbon Dioxide 25
BUN 6 L
Creatinine 0.4 L
Glucose 180 H
Calcium 7.9 L
Vital Signs:
Vital Signs
Temp Pulse Resp BP Pulse Ox
98.0 F 92 16 137/60 100
12/13/24 07:56 12/13/24 07:56 12/13/24 07:56 12/13/24 07:56 12/13/24 07:56
I&O
12/12/24 12/13/24 12/14/24
06:59 06:59 06:59
Intake Total 4160 / 4160 2460 / 2460
Balance 4160 / 4160 2460 / 2460
Review of Systems
-
History Source: Patient
All other systems: Reviewed and negative
Physical Exam
-
General: Well Developed, Well Nourished, No Apparent Distress, Comfortable and Other (Frail-appearing)
HEENT: Normocephalic, Atraumatic and Moist Mucous Membranes
Respiratory: Clear to Auscultation and Non Labored Respirations
Cardiac: Regular Rhythm and S1/S2; Negative Murmur, Rub or Gallop
GI: Soft, Nontender, Nondistended and Normal Bowel Sounds
Musculoskeletal: No Clubbing, No Cyanosis and No Edema
Skin: Warm, Dry and Normal Turgor; Negative Rash
Neuro: AO x 3 and Nonfocal/Grossly Intact
Psych: Agitated
Data Reviewed
-
Labs: Labs Reviewed by me, Discussed with Physician (Gastroenterology), Discussed with Patient and Discussed with Family
[2024-12-13] MEDS: NSS 1000 IV (11:45)
[2024-12-13 11:47] LABS: Glucose - Point of Care 164 mg/dl (70-99)
[2024-12-13] MEDS: NOVOLOG FLEXPEN-LOW RESISTANCE 1 UNITS SC (11:47)
--- NOTE | 2024-12-13 12:35 | CM ---
Addendum entered by Yahaira Barber 12/13/24 15:58:
tt from from [facility] - PM&R consult need to be ordered - CM tt hospitalist
Original Note:
PT rec Acute rehab.
Met with patient and .
Agreeable to [facility].
Referral sent to [facility]
Will need insurance auth
PLAN: Acute Rehab, pending bed availability
[2024-12-13] MEDS: NOVOLOG FLEXPEN 10 UNITS SC ×2 (12:42→17:05)
--- NOTE | 2024-12-13 14:30 | W.PN.GI.CBS2 ---
Today's Communication / Plan
-
UGI series with small bowel follow-through
Assessment / Plan
-
Pt is a 74yo with hx HTN, hyperlipidemia, NIDDM with recent [facility] stay with several recent medical issues and treatment at [facility] including DKA with FBS 600's and hbg A1C 13.4 (admits to non compliance with medication), dark heme +
stools, diarrhea (c-diff neg), rectal pain fecal impaction, recent fungal infection, sepsis with ELIDIA, b/l hydro, UTI (ecoli), and change of mental status with CVA and left hemiph (11/28/24). Per rehabs notes pt was taking frequent NSAIDs prior to
admission with no documentation of any GI testing completed and denies prior EGD/colon. She was noted 11/28 with left hemiparesis and HCT noted evolving CVA. She now has been admitted to [facility] on 12/05. She presents to ER with onset of chest pain
with nausea. On admission CT Chest completed neg PE or dissection. Moderate dilation of the thoracic esophagus and stomach, with retained food material throughout the esophagus. Esophagus measures 3 cm in diameter. Findings may related to
esophageal motility disorder, intestinal obstruction, and/or obstructing lesion. Moderate coronary arterial calcification and mild bibasilar subsegmental atelectasis.
- chest pain /nausea/vomiting/hematemesis on admission . currently denies any symptoms
-CT with concern for distention of thoracic esophagus/stomach with retained food material
-anemia with drop after admission
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
-NIDDM with poorly controlled disease and recent hbg A1C 13.4 with recent DKA
-recent reported heme + stool
-recent fecal impaction and diarrhea with concern for overflow
-recent UTI
-hx NSAID use
-mild elevated troponin
plan
Patient currently denies any GI symptoms. Etiology for her admitting symptoms can be multifactorial-considering recent CVA/uncontrolled diabetes with possible gastroparesis/possible esophageal dysmotility/cannabis use etc. Hematemesis after
vomiting can be secondary to esophagitis versus Farhana-Garcia tear. Currently resolved. No further overt GI bleeding . hb was 6.9 yesterday s/p 1 unit PRBC with Hb around 8 and stable.
I discussed again with the patient reviewing benefits and risk of EGD evaluation. No prior EGD or colonoscopy. patient will be at high risk with recent CVA 11/28/2024. Patient verbalized understanding and would like to hold off on future EGD
(understanding possibility of missing esophageal lesion including neoplasm) . Discussed with anesthesia patient will be high risk - ASA4 for EGD with sedation
Will get upper GI series with small bowel follow-through to rule out any obstructive lesion. Patient is agreeable for the testing
Continue monitor H&H
Continue PPI twice daily
Good glycemic control as per medical team (BS was in 400 's. HbA1C > 13 )
Avoid cannabis in the future
Patient to be placed in rehab
Total Time Spent with Patient (in minutes): 35
Subjective
Subjective
Date of Service: December 13, 2024
Tolerated liquid diet. On low residual diet today without any nausea or vomiting or difficulty swallowing
Objective
Data Reviewed
Laboratory Data:
Laboratory Results
12/13/24 05:57
12/13/24 05:57
Laboratory Results
PT 14.4 Sec (11.4-14.6) 12/11/24 04:40
INR 1.09 12/11/24 04:40
APTT 29.9 Sec (23.4-35.0) 12/11/24 04:40
Total Bilirubin 0.2 mg/dl (0.2-1.3) 12/11/24 20:48
AST 34 U/L (14-36) 12/11/24 20:48
ALT 31 U/L (0-35) 12/11/24 20:48
Alkaline Phosphatase 76 U/L (38-126) 12/11/24 20:48
Vital Signs and I&O:
Vital Signs
Temp Pulse Resp BP Pulse Ox
98.1 F 83 16 123/55 100
12/13/24 11:41 12/13/24 11:41 12/13/24 11:41 12/13/24 11:41 12/13/24 11:41
I&O
12/12/24 12/13/24 12/14/24
06:59 06:59 06:59
Intake Total 4160 / 4160 2460 / 2460
Balance 4160 / 4160 2460 / 2460
Physical Exam
Physical Exam
GI: Soft, Non Distended and Non Tender
[2024-12-13] MEDS: FERRLECIT 110 MG IV (15:08)
[2024-12-13 16:36] LABS: Glucose - Point of Care 248 mg/dl (70-99)
[2024-12-13] MEDS: NOVOLOG FLEXPEN-LOW RESISTANCE 2 UNITS SC (17:06)
--- NOTE | 2024-12-13 17:30 | PTCARENOTE ---
Patient ambulated with walker in hallway assisted by staff.
[2024-12-13] MEDS: PROTONIX 40 MG PO (20:37)
[2024-12-13 21:07] LABS: Glucose - Point of Care 205 mg/dl (70-99)
[2024-12-13] MEDS: LANTUS 0.23 UNITS SC (21:44)
[2024-12-14] VITALS (7 sets, daily range): BP systolic 120–139; BP diastolic 46–57; PULSE 94; O2SAT 98; BMI 23.1
[2024-12-14 06:48] LABS: Hematocrit 24.9 % (37.0-47.0); Mean Corp Hgb Conc. 32.1 g/dL (33.0-37.0); Mean Corpuscular Hgb 28.8 pg (27.0-31.0); Mean Corpuscular Volume 89.6 fL (81.0-99.0); Platelet Count 264 10^3/uL (130-400); Red Blood Cell Count 2.78 10^6/uL (4.20-5.40); Red Cell Dist. Width 16.6 % (11.5-14.5); White Blood Cell Count 3.8 10^3/uL (4.8-10.8)
[2024-12-14 07:05] LABS: Glucose - Point of Care 204 mg/dl (70-99)
[2024-12-14 07:07] LABS: Blood Urea Nitrogen 5 mg/dl (7-17); Calcium 8.1 mg/dl (8.4-10.2); Carbon Dioxide 28 mmol/L (22-30); Chloride 102 mmol/L (98-107); Estimated Creatinine Clearance 55 ml/min; Glucose 192 mg/dl (70-99); Potassium 3.6 mmol/L (3.5-5.1); Sodium 135 mmol/L (135-145); eGFR > 60.00
--- NOTE | 2024-12-14 08:10 | W.PN.GI.CBS2 ---
Today's Communication / Plan
-
Plan for UGIS w/ SBFT later today. Still holding off on any plans for an EGD given recent CVA. No signs of recurrent bleeding and stable H/h. Rest of care as outlined below.
Assessment / Plan
-
Ms. Collins is a 74yo with hx HTN, hyperlipidemia, NIDDM with recent [facility] stay with several recent medical issues and treatment at [facility] including DKA with FBS 600's and hbg A1C 13.4 (admits to non compliance with medication), dark
heme + stools, diarrhea (c-diff neg), rectal pain fecal impaction, recent fungal infection, sepsis with ELIDIA, b/l hydro, UTI (ecoli), and change of mental status with CVA and left hemiph (11/28/24). Per rehabs notes pt was taking frequent NSAIDs
prior to admission with no documentation of any GI testing completed and denies prior EGD/colon. She was noted 11/28 with left hemiparesis and HCT noted evolving CVA. She now has been admitted to [facility] on 12/05. She presents to ER with onset of
chest pain with nausea. On admission CT Chest completed neg PE or dissection. Moderate dilation of the thoracic esophagus and stomach, with retained food material throughout the esophagus. Esophagus measures 3 cm in diameter. Findings may related
to esophageal motility disorder, intestinal obstruction, and/or obstructing lesion. Moderate coronary arterial calcification and mild bibasilar subsegmental atelectasis.
#Chest pain /nausea/vomiting/hematemesis on admission . currently denies any symptoms
#CT with concern for distention of thoracic esophagus/stomach with retained food material
#Anemia with drop after admission
#Recent CVA with left hemiplegia 11/28/2024 )
#NIDDM with poorly controlled disease and recent hbg A1C 13.4 with recent DKA
#Recent reported heme + stool
#Recent fecal impaction and diarrhea with concern for overflow
#Recent UTI
#Hx NSAID use
#Mild elevated troponin
Impression: No current GI symptoms or other recurrent symptoms at this time. Suspect etiology for her prior admitting symptoms can be multifactorial-considering recent CVA/uncontrolled diabetes with possible gastroparesis/possible esophageal
dysmotility/cannabis use etc. Hematemesis after vomiting can be secondary to esophagitis versus Farhana-Garcia tear. Currently resolved. No further overt GI bleeding . Previous Hgb 6.9 s/p 1 uPRBC with stable Hgb 8s without any concern for
recurrent GI bleeding.
Recommendations:
- Keep NPO pending UGIS
- Patient would be at high risk for anesthesia given her recent CVA 11/28/2024. Discussed again this morning regarding risks and benefits of EGD given her increased risks
- Patient demonstrated understanding and clearly stated that she should want to defer further endoscopic evaluation given her CVA (understanding possibility of missing esophageal lesion including neoplasm)
- Await UGIS w/ SBFT to r/o any mucosal abnormalities, stricture or other obstructing lesion and/or mass
- IV PPI 40 mg BiD
- Trend Hgb with serial CBC, transfuse as needed
- Maintain good glycemic control as per primary team (A1c > 13%)
- Avoidance of cannabis
- Rest of care as per primary team
Discussed with primary internal medicine team. GI will continue to follow. Please call with any questions or concerns.
Subjective
Subjective
Date of Service: December 14, 2024
- No acute events overnight
Resting comfortably this AM, denies any further nausea/vomiting, regurgitation, or chest discomfort this morning. No other GI Discussed plan for UGIS w/ SBFT later today along with holding off on plans for any endoscopic evaluation given her recent
CVA.
Objective
Data Reviewed
Laboratory Data:
Laboratory Results
12/14/24 06:26
12/14/24 06:26
Laboratory Results
PT 14.4 Sec (11.4-14.6) 12/11/24 04:40
INR 1.09 12/11/24 04:40
APTT 29.9 Sec (23.4-35.0) 12/11/24 04:40
Total Bilirubin 0.2 mg/dl (0.2-1.3) 12/11/24 20:48
AST 34 U/L (14-36) 12/11/24 20:48
ALT 31 U/L (0-35) 12/11/24 20:48
Alkaline Phosphatase 76 U/L (38-126) 12/11/24 20:48
Vital Signs and I&O:
Vital Signs
Temp Pulse Resp BP Pulse Ox
98.1 F 81 18 139/51 100
12/14/24 07:38 12/14/24 07:38 12/14/24 07:38 12/14/24 07:38 12/14/24 07:38
I&O
12/13/24 12/14/24 12/15/24
06:59 06:59 06:59
Intake Total 2460 / 2460 1135 / 1135
Balance 2460 / 2460 1135 / 1135
Physical Exam
Physical Exam
HEENT: Anicteric and Moist mucous membranes
Cardiology: Normal Sinus Rhythm
Pulmonary: Other (Normal WOB on room air)
GI: Soft, Non Distended and Non Tender
Extremities: No Edema
Neuro: Non Focal
[2024-12-14] MEDS: PROTONIX 40 MG PO ×2 (08:34→20:09)
[2024-12-14] MEDS: MIRALAX PO (08:34)
[2024-12-14 08:35] LABS: Absolute Neutrophils -Man Diff 2.1 10^3/uL (1.4-6.5); Band Neutrophils 5 % (0-3); Eosinophils 3 % (0-6); Lymphocytes 30 % (20-51); Monocytes 11 % (2-9); Platelets Checked Yes; Segmented Neutrophils 51 % (42-75)
[2024-12-14] MEDS: NOVOLOG FLEXPEN-LOW RESISTANCE 2 UNITS SC ×2 (08:35→17:14)
[2024-12-14] MEDS: NOVOLOG FLEXPEN 10 UNITS SC ×2 (08:35→17:14)
[2024-12-14 08:36] LABS: Anisocytosis 1+; Hypochromasia 1+; Normal RBC Morphology No; Polychromasia 1+; Total Cells Counted 100
--- NOTE | 2024-12-14 11:38 | W.PN.HOSP.TC ---
Today's Communication/Plan
-
Follow-up upper GI series
Twice daily oral PPI
Trend CBC while here
Physiatry evaluation
Assessment / Plan
Assessment / Plan
#GI dysmotility/bezoar
-Differentials include diabetic gastroparesis, neurologic peristaltic deficits from recent stroke
-CT scan with distention of the thoracic esophagus and stomach with retained food
-No NGT placed due to significant solid component of retained food matter
-GI following, patient deferred against EGD; started on bowel regimen and PPI
-Remains with soft abdomen, denies any symptoms of abdomen or chest pain
-Has remained hemodynamically stable, no signs of aspiration
Plan
-Follow-up upper GI series to rule out obstruction
-C/W Bowel regimen per GI
-Continue with oral PPI twice daily
-Continue regular diet
#Acute on chronic normocytic anemia
#Hematemesis from likely Farhana-Garcia tear
-Hemoglobin dropped from near 11-76.9 after admission; s/p 1 unit with hemoglobin 8
-Patient did have hematemesis prior to arrival concerning for Farhana-Garcia tear
-No obvious signs of rectal bleeding or recurrence of hematemesis here
-Evaluated by GI, no plan for EGD as of now
-Transitioned to PO PPI as above
#Type 2 diabetes mellitus
-Recent A1c >13%; no documented microvascular disease though likely
-Possibly with diabetic gastroparesis due to the above issues, persistent hyperglycemia
-Home medications include Lantus, lispro, ISS, metformin; also on high intensity statin
-Home Lantus was initially held, likely for n.p.o. status on admission
-Initially had significant hyperglycemia though improved when resumed on home Lantus
-Blood glucose goal 140-180, avoid hypoglycemia
#Primary HTN
-Home medications include losartan 25 mg
-No known history of hypertensive systemic disease
-Blood pressure currently adequate
#HLD
-Likely ASCVD history with CVA, presumed cerebrovascular etiology
-Home medication includes high intensity
#H/O CVA
-Recent hospitalizations for CVA complicated by left hemiparesis
-Suspect this may be contributing to her GI dysmotility as above
-Home medications include aspirin and high intensity statin
-No history of AF/AFL; presumed cerebrovascular cause
DVT prophylaxis: SCDs
Diet: Low residue
CODE STATUS: Full Code
Disposition: SNF versus [facility] (consult for physiatry placed)
Anticipated Discharge: Within 24 hours
Subjective/Interval History
-
Date of Service: December 14, 2024
Seen and examined at the bedside. No acute events reported overnight. AFVSS this morning
She denies any abdomen or chest pain, states she feels overall well. Hemoglobin remained stable. No recurrence of hematemesis.
Denies any new complaints. Amenable to rehab after talking with her family yesterday
Objective Data
-
Labs:
Laboratory Results
12/14/24
06:26
WBC 3.8 L
Hgb 8.0 L
Hct 24.9 L
Plt Count 264
Sodium 135
Potassium 3.6
Chloride 102
Carbon Dioxide 28
BUN 5 L
Creatinine 0.4 L
Glucose 192 H
Calcium 8.1 L
Vital Signs:
Vital Signs
Temp Pulse Resp BP Pulse Ox
98.1 F 81 18 139/51 100
12/14/24 07:38 12/14/24 07:38 12/14/24 07:38 12/14/24 07:38 12/14/24 11:07
I&O
12/13/24 12/14/24 12/15/24
06:59 06:59 06:59
Intake Total 2460 / 2460 1135 / 1135
Balance 2460 / 2460 1135 / 1135
Review of Systems
-
History Source: Patient
All other systems: Reviewed and negative
Physical Exam
-
General: Well Developed, No Apparent Distress, Comfortable and Other (Frail-appearing)
HEENT: Normocephalic, Atraumatic, Moist Mucous Membranes and Anicteric
Respiratory: Clear to Auscultation and Non Labored Respirations
Cardiac: Regular Rhythm and S1/S2; Negative Murmur, Rub or Gallop
GI: Soft, Nontender, Nondistended and Normal Bowel Sounds
Musculoskeletal: No Clubbing, No Cyanosis and No Edema
Skin: Warm, Dry and Normal Turgor; Negative Rash
Neuro: AO x 3, Central Nerve's Intact and Other (Chronic left extremity deficits; no new FND)
Psych: Calm
Data Reviewed
-
Labs: Labs Reviewed by me and Discussed with Patient
[2024-12-14 12:01] LABS: Glucose - Point of Care 58 mg/dl (70-99)
[2024-12-14] MEDS: NOVOLOG FLEXPEN SC (12:13)
[2024-12-14] MEDS: NOVOLOG FLEXPEN-LOW RESISTANCE SC (12:14)
[2024-12-14 12:17] LABS: Glucose - Point of Care 64 mg/dl (70-99)
[2024-12-14 12:40] LABS: Glucose - Point of Care 108 mg/dl (70-99)
[2024-12-14] MEDS: FERRLECIT 110 MG IV (14:53)
[2024-12-14 15:03] LABS: Glucose - Point of Care 313 mg/dl (70-99)
--- NOTE | 2024-12-14 15:32 | CM ---
Reviewed the chart notes. PMR consult pending. CM continues to be available to patient/family and is monitoring medical plan for needs at discharge.
Plan: Discharge plans will depend on the patient's progress. Patient hoping for Acute Rehab.
[2024-12-14] MEDS: NOVOLOG FLEXPEN 5 UNITS SC (16:19)
[2024-12-14 17:10] LABS: Glucose - Point of Care 245 mg/dl (70-99)
--- NOTE | 2024-12-14 17:47 | PTCARENOTE ---
Pts accucheck at 1200 was 58, 4oz of juice given, recheck at 15 minutes was 64, additional juice given, accucheck came up to 108. Q2x2 accuchecks complete, 1st stick at [id number]. This RN reached out to MD, 1 time dose of 5 units administered. 2nd
stick at 245, 10 units of standing and 2 units of coverage administered. Oncoming RN to be made aware of 0300 fingerstick required per protocol. See hypoglycemic documentation in worklist, no new orders at this time.
--- NOTE | 2024-12-14 19:51 | CON.MD ---
Consultation - Medical
-
Referring Provider:�Dr. Alfonso Springer
Chief Complaint:�Chest pain and vomiting
�
History of Present Illness:�Patient is a 74-year-old female with PMH of (uncontrolled diabetes, DKA, hyperlipidemia, hypertension) with recent ER visit for buttocks pain and fungal skin infection presented with change of mental status, DKA with
blood sugars in the 600s, dark stools and diarrhea x 2 days. In the ED, she was found to be in DKA and ELIDIA. She was given IV fluids and started on insulin infusion. Of note, patient was in the ED on November 24 for rectal pain. She was treated for
a fungal skin infection, given Lotrisone and discharged home. She was admitted for severe sepsis, ELIDIA due to UTI present on admission with elevated wbc >12 and altered mental status, metabolic encephalopathy, CVA. She was given empiric IV Rocephin
and Flagyl and IV fluids with follow-up cultures. CAT scan of the abdomen on 11/28 shows fecal impaction. Mild�moderate bilateral hydronephrosis. GI�soft brown stool in rectum. Had suppository on 11/29. Heme�positive stools. GI consulted- Had a
trial of clear liquid diet and PPI twice daily was added. Plavix on hold due to GI bleed. Patient had no additional bloody BM since arrival. Noting frequent nonsteroidal use. Avoid NSAIDs as able. GI recommended MiraLAX and PPI. Stool
negative for Clostridium difficile. hemoglobin remained stable. Significant erythema in perianal area. case monitor following. No other workup needed. (Not sure if any colonoscopy or upper endoscopy were performed?) On 11/28/24-in the evening her
left arm was flaccid stat head CT was performed showing right parietal hypodensity suspicious for evolving acute infarct. Providers decided if this was subacute. Normal seen not clear, planning MR studies aspirin if hemoglobin remained stable but
there would be no transfer [facility] 18 slurred speech, right gaze, later improved able to follow. Had difficulty lifting the left arm and left leg. Neuro�metabolic encephalopathy then unexpected multiple embolic strokes on MRI. No A-fib on telemetry.
MRA with no stenosis. Left hemiparesis and mental status change improving. Hypercoagulable state related to multiple profound acute medical problems. Continue low-dose aspirin. Hold Plavix for GI bleeding. Endocrine�DKA, uncontrolled diabetes
type 2. Hemoglobin A1c 13.4. Following and adjusting insulin. Patient was started on lispro 3 units prior to meals and Lantus 8 units at bedtime that has since been increased to 10 units for long-acting. Urology�follow-up CAT scan of abdomen on
12/02�shows kidneys to be normal and fecal impaction resolved. UTI with E. coli, treated with ceftriaxone. Urinary retention. Failed voiding trials. Straight cath x 3 then gu placed due to large bladder. Could be due to stool impaction. Keep
Gu for now. 12/03�loose stools, C. difficile negative. White blood cell 9.9, hemoglobin stable at 10.3. 12/04�loose stools frequency decreased, just a very small amount today per nursing. On IV Dilaudid for buttocks pain, last dose 11 PM. Will
DC and switch to oral Oxy IR. Last day for IV antibiotics. Remains afebrile. Blood sugars 192�338. 12/05�blood pressure little high this a.m. 191/76 but was prior to meds. Currently 133/60. Patient DC to rehab.
Patient admitted to [facility] on 12/05, and was participating well in therapy. She was making gains. She had bilateral buttocks excoriations which were improving with clotrimazole. She was making progress up until 12/10/2024 where she developed an
episode of shortness of breath with chest pain. CT of the chest without PE or dissection. Noted to have moderate dilatation of thoracic esophagus and stomach with retained food material throughout the esophagus. Findings may be related to
esophageal motility disorder, intestinal obstruction, and/or obstructing lesion. Seen by GI kept n.p.o. with plan for upper GI series, risk of upper endoscopy felt to outweigh the benefit with her recent stroke. No NG tube placed with concern for
significant solid component of the retained food matter. She was started on a bowel regimen and a PPI. Hospital course otherwise significant for acute on chronic normocytic anemia with hematemesis from likely Farhana-Garcia tear. She received 1
unit of transfusion for hemoglobin of 6.9 now stable at 8.
�
Past Medical History:�uncontrolled Diabetes, HLD, HTN,
Procedure History:�Breast lumpectomy
Family History:��not pertinent�������������
�
Social History:��
Functional Level Premorbidly:�Independent with all activities��
Functional Level at Previous Facility: Supervision bed mobility and transfers. Ambulated 100 feet and 40 feet with rolling walker min assist x 1 for balance. Min assist toilet transfer, min assist simple ADLs.
�
Tobacco:�Former
Alcohol:�Denies��
Drug use:�Denies��
�
Lives With:�spouse�
24-hour assistance available:�yes�
Number of floors:��2
# steps to enter:��1
# steps to second floor:�FF�
Potential First Floor Set Up:��jia, lives on first floor
Driving:��yes
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
�
Allergies:��
Allergy/AdvReac Type Severity Reaction Status Date / Time
No Known Allergies Allergy Unverified 12/05/24 14:58
Review of Systems:�
Constitutional: (x) Normal _
Eye: (x) Normal _
Ear/Nose/Throat: (x) abNormal _had trouble swwallowing, better now.
Respiratory: (x) Normal _
Cardiovascular: (x) Normal _
Gastrointestinal: (x) abNormal _history of impaction
Genitourinary: (x) abNormal _urinary retention, h/o uti- treated with ceftriaxone
Musculoskeletal: (x) Normal _
Integumentary: (x) abNormal _large perianal, bilateral gluteal fold erythema, excoriation much improved.
Neurologic: (x) abNormal _CVA, left sided weakness
Psychiatric: (x) Normal _
Endocrine: (x) abNormal uncontrolled DM
Hematologic/Lymphatic: (x) Normal _
Allergic/Immunologic: (x) Normal _
�
Medications:�
Active Current Visit Medication List
Category Date Time Status
Dextrose 50%-Water [Dextrose 50% Syringe] Med 12/11/24 05:00 Active
12.5 grams IV [id number] PRN
Ferric Gluconate [Ferrlecit] 125 mg Med 12/13/24 14:00 Active
0.9% Sodium Chloride 100 ml [Nss] 100 ml
IV DAILY@1400
Flush (0.9% Sodium Chloride) [Flush (Nss)] Med 12/11/24 05:00 Active
See Dose Instructions IV PER PROTOCOL
Glucagon [GlucaGen] Med 12/11/24 05:00 Active
1 mg IM PRN PRN
HYDROmorphone [Dilaudid] Med 12/11/24 04:03 Active
0.25 mg IV Q4HPRN PRN
Insulin Aspart Corrective Low [Novolog Flexpen-Low Med 12/11/24 11:30 Active
Resistance]
See Protocol SC AC
Insulin Aspart Pen [Novolog Flexpen] Med 12/12/24 10:34 Active
10 units SC AC
Insulin Glargine Lantus [Lantus] 15 units Med 12/14/24 15:41 Active
Subcutaneous Insulin Syringe [Syringe-Insulin] 0 unit
SC HS
Ondansetron Injectable [Zofran] Med 12/11/24 04:03 Active
4 mg IV Q6HPRN PRN
Pantoprazole [Protonix] Med 12/13/24 20:00 Active
40 mg PO BID
Polyethylene Glycol Powder [Miralax] Med 12/11/24 10:00 Active
17 grams PO DAILY
�
Vitals:�
Temp Pulse Resp BP Pulse Ox
99.1 F 93 18 128/46 100
12/14/24 15:02 12/14/24 15:02 12/14/24 15:02 12/14/24 15:02 12/14/24 15:02
Height 4 ft 11 in
Actual Weight 51.936 kg
Body Mass Index (BMI) 23.1
�
Physical Exam:�
General Appearance/Observation: Well-developed, well-nourished individual in no apparent distress.��
Pain/Comfort Assessment: Perianal, buttocks pain
Mood/Affect: Appropriate ��
�
Eyes: Conjunctiva/Lids: normal���� Pupils: pupils equal round and reactive to light and Accommodation��
Ears/Nose/Throat: oral mucosa moist,� throat clear.�������������Lips/Teeth/Gums: normal��
Neck: No muscle spasm or tenderness��
Cardiovascular: Heart: regular, no murmur��
Pulses: dorsalis pedis 2+ bilaterally��
Respiratory: Respiratory Effort/Chest Expansion: normal.�������Auscultation: Clear to auscultation bilaterally��
Gastrointestinal: abdomen not tender, no distension, normal abdominal bowel sounds
Genitourinary: No Gu��
Extremities:�Edema: None�Cyanosis: None�Trophic�changes: None
��
Neurology Exam:
Orientation: Alert, Oriented to person place and time, recognized physician from [facility]. �
Memory: Intact for immediate medical concerns
Comprehension: occasionally needed cues
Two step command: Intact
Naming: Intact
Cranial Nerves:
�� CNII:�Pupillary light reflex: Intact����Visual Field: Intact
�� CN III, IV, : Extraocular muscles: Intact��
�� CN V:�Facial Sensation�at�Forehead: impaired on left ,�Maxilla: Intact,�Mandible: Intact
�� CN VII:�Facial movement: Symmetric
�� CN VIII:�Hearing: Normal
�� CN IX/X:�Speech & swallow: Normal�Position of Uvula: Midline
�� CN XI:�Shoulder shrug: Mild weakness on left
�� CN XII:�Tongue protrusion: Midline
Sensory:
�� Light touch: Intact in bilateral upper and lower extremities
��
�Reflexes:
�� Biceps: 2+ bilaterally
�� Brachioradialis: 2+ bilaterally
�� Triceps: 2+ bilaterally
�� Patellar: 2+ bilaterally
�� Achilles: 2+ bilaterally
�� Babinski: Downgoing on right, no response on left
�� Clonus: None
�� Mary Lou: Negative bilaterally��
Cerebellar: Dysmetria/Ataxia: impaired on the left for [id number] coordination
Musculoskeletal: Motor: (Manual muscle scale 0-5)��
Muscle SA EF WE EE FF FA HF KE DF EHL PF
Right� 5 5 5 5 5 5 5 5 5 5
Left 4 4 4 4 4 4 4 5 5 5
�
Tone: Normal in all extremities��
Range of Motion: Passively within normal limits in all extremities
�
Lab Results
Laboratory Data
12/14/24 06:26
12/14/24 06:26
PT 14.4 Sec (11.4-14.6) 12/11/24 04:40
INR 1.09 12/11/24 04:40
APTT 29.9 Sec (23.4-35.0) 12/11/24 04:40
Total Bilirubin 0.2 mg/dl (0.2-1.3) 12/11/24 20:48
AST 34 U/L (14-36) 12/11/24 20:48
ALT 31 U/L (0-35) 12/11/24 20:48
Alkaline Phosphatase 76 U/L (38-126) 12/11/24 20:48
Total Protein 5.0 g/dl (6.3-8.2) L 12/11/24 20:48
Albumin 2.8 g/dl (3.5-5.0) L 12/11/24 20:48
�
Diagnostic Results:�as per HPI�
�
Assessment
74-year-old female with PMH of (uncontrolled diabetes, DKA, hyperlipidemia, hypertension) Multiple acute bilateral right greater than left parietal�occipital infarcts and probable small right cerebellar infarct on MRI with left hemiparesis with
��
Plan�
PM&R�PT/OT to increase independence with ADLs, improve balance, coordination, endurance, strength, mobility, community reintegration, decreased burden of care on others and family education.�
Thoracic esophagus and stomach with retained food: Differentials include diabetic gastroparesis, neurologic peristaltic deficits from recent stroke
-GI following, patient deferred against EGD; started on bowel regimen and PPI
-Has remained hemodynamically stable, no signs of aspiration
�
CVA: Multiple acute bilateral right greater than left parietal�occipital infarcts and probable small right cerebellar infarct . Currently on aspirin 81mg alone . (Per patient's pcp office-was not on plavix or aspirin OP just BP and cholesterol med)
statin, and blood pressure control (SBP less than 180 and diastolic less than 100 to participate with therapy for ischemic stroke). Continue to monitor neurologic status.��
Left nondominant hemiparesis: High risk for falls and sliding out of chair/bed. Safety reinforced.��
Dysarthria: mild-speech��
HTN: Off medication. Monitor
HLD: �Atorvastatin 40 mg daily
Uncontrolled DM II with h/o DKA: Accu-Cheks, insulin sliding scale, aspart 10 units sc ac, lantus 23 units HS .���������
MASD/fidelia-anal and buttocks excoriation/fungal infection:� Vitamin C, zinc, multivitamin.� Weight shifts in wheelchair and bed.� Roho cushion.� Pressure-relief boots.� nystatin and hydrocortisone cream as directed.
Acute GI bleed on chronic anemia: Transfused 1 unit PRBCs with hemoglobin stable at 8, monitor.��
Pain: acetaminophen as needed.��
Bowel/history of fecal impaction/loose stools: MiraLAX daily
Bladder/urinary retention: Monitor urine output, bladder scan as necessary.�
GI Prophylaxis/Hiatal Hernia/h/o GI bleed:Per CT scan. Pantoprazole�40mg qd. Avoid NSAIDS
DVT Prophylaxis: Mechanical only with bleeding.
Pulmonary: Incentive spirometry��
Safety: Continue to reinforce assistance with all transfers.��
Code Status:� Full code
Dispo�(date/plan/equipment needs): Home with family care.��
�Functional and Medical Goals:�Modified Independent with ADL�s, ambulation, transfers�
Discharge Destination:�Acute inpatient rehabilitation unless patient has significant improvements functionally over the next couple of days
�
Summary of recommendations:
-�Discharge Destination:�Acute inpatient rehabilitation unless patient has significant improvements functionally over the next couple of days�
Thoracic esophagus and stomach with retained food: Differentials include diabetic gastroparesis, neurologic peristaltic deficits from recent stroke
-GI following, patient deferred against EGD; started on bowel regimen and PPI
-Has remained hemodynamically stable, no signs of aspiration
CVA: aspirin 81mg held with GI bleeding, statin, and blood pressure control (SBP less than 180 and diastolic less than 100 to participate with therapy for ischemic stroke). Continue to monitor neurologic status.��
MASD/fidelia-anal and buttocks excoriation/fungal infection:� Vitamin C, zinc, multivitamin.� Weight shifts in wheelchair and bed.� Roho cushion.� Pressure-relief boots.� nystatin and hydrocortisone cream as directed.
Acute GI bleed on chronic anemia: Transfused 1 unit PRBCs with hemoglobin stable at 8, monitor.��
�
Thank you for allowing me to care for your patient. Please contact me with any questions or concerns.
[2024-12-14] MEDS: LANTUS 0.15 UNITS SC (21:16)
[2024-12-14 21:17] LABS: Glucose - Point of Care 112 mg/dl (70-99)
[2024-12-15 03:04] LABS: Glucose - Point of Care 118 mg/dl (70-99)
[2024-12-15 03:19] LABS: Glucose - Point of Care 118 mg/dl (70-99)
[2024-12-15 06:00] VITALS: BMI 22.6
--- NOTE | 2024-12-15 06:05 | W.PN.GI.CBS2 ---
Today's Communication / Plan
-
Reviewed recent UGIS w/ SBFT with presbyesophagus without any other luminal abnormalities (stricture, mass, etc). Would benefit from an eventual EGD as an outpatient in 12 weeks or until cleared by Neuro given recent CVA given her abnormal UGIS and
visualized gastric ulcer. PPI 40 mg x 8 weeks and then once daily. Recommend outpatient f/u with GI after rehab to coordinate an eventual EGD. See rest of care as outlined below. GI will sign-off, please call with any questions or concerns.
Assessment / Plan
-
Ms. Collins is a 74yo with hx HTN, hyperlipidemia, NIDDM with recent [facility] re[facility] stay with several recent medical issues and treatment at [facility] including DKA with FBS 600's and hbg A1C 13.4 (admits to non compliance with medication), dark
heme + stools, diarrhea (c-diff neg), rectal pain fecal impaction, recent fungal infection, sepsis with ELIDIA, b/l hydro, UTI (ecoli), and change of mental status with CVA and left hemiph (11/28/24). Per rehabs notes pt was taking frequent NSAIDs
prior to admission with no documentation of any GI testing completed and denies prior EGD/colon. She was noted 11/28 with left hemiparesis and HCT noted evolving CVA. She now has been admitted to [facility] on 12/05. She presents to ER with onset of
chest pain with nausea. On admission CT Chest completed neg PE or dissection. Moderate dilation of the thoracic esophagus and stomach, with retained food material throughout the esophagus. Esophagus measures 3 cm in diameter. Findings may related
to esophageal motility disorder, intestinal obstruction, and/or obstructing lesion. Moderate coronary arterial calcification and mild bibasilar subsegmental atelectasis.
#Chest pain /nausea/vomiting/hematemesis on admission . currently denies any symptoms
#CT with concern for distention of thoracic esophagus/stomach with retained food material
#Anemia with drop after admission
#Recent CVA with left hemiplegia 11/28/2024 )
#NIDDM with poorly controlled disease and recent hbg A1C 13.4 with recent DKA
#Recent reported heme + stool
#Recent fecal impaction and diarrhea with concern for overflow
#Recent UTI
#Hx NSAID use
#Mild elevated troponin
Impression: No current GI symptoms or other recurrent symptoms at this time. Suspect etiology for her prior admitting symptoms can be multifactorial-considering recent CVA/uncontrolled diabetes with possible gastroparesis/possible esophageal
dysmotility/cannabis use etc. Hematemesis after vomiting can be secondary to esophagitis versus Farhana-Garcia tear. Currently resolved. No further overt GI bleeding . Previous Hgb 6.9 s/p 1 uPRBC with stable Hgb 8s without any concern for
recurrent GI bleeding.
S/p UGIS w/ SBFT 12/14/24- Impression: patulous debris-filled esophagus, mild presbyesophagus, small amount of aspiration during initial swallows, small peptic ulcer (6 mm with central crater within the gastric body), severe gastroesophageal reflux.
Currently still without any recurrent symptoms of dysphagia or other symptoms to suggest an esophageal obstruction/impaction. No other strictures or other luminal irregularities visualized within the esophagus.
Recommendations:
- Advance diet as tolerated as per [employer]
- Encourage conservative measures with consuming smaller meals, avoiding late night meals, raising the head of the bed with eating, minimizing anticholinergic agent given concern for aspiration
- Still no plans for an EGD given increased risk with anesthesia given her recent CVA 11/28/2024
- Patient previously demonstrated understanding and clearly stated that she should want to defer further endoscopic evaluation given her CVA (understanding possibility of missing esophageal lesion including neoplasm)
- Did discuss the need for a repeat EGD as an outpatient given her abnormal UGIS (may have an underlying motility disorder versus underlying poorly controlled diabetes versus component of presbyesophagus versus achalasia) along with evaluating her
small, cratered gastric ulcer
- Favor repeat EGD in 12 weeks or until cleared by Neurology to undergo anesthesia given her prior CVA. Ultimately, recommend outpatient GI f/u if patient is willing (and currently declining)
- Pantoprazole 40 mg twice daily for 8 weeks, then once daily
- Trend Hgb with serial CBC, transfuse as needed
- Maintain good glycemic control as per primary team (A1c > 13%)
- Avoidance of cannabis and alcohol
- Strict avoidance of all NSAIDs
- Rest of care as per primary team
Discussed with primary internal medicine team this AM. GI will sign-off. Please recontact with any questions or concerns.
Subjective
Subjective
Date of Service: December 15, 2024
- S/p UGIS w/ SBFT 12/14/24- Impression: patulous debris-filled esophagus, mild presbyesophagus, small amount of aspiration during initial swallows, small peptic ulcer (6 mm with central crater within the gastric body), severe gastroesophageal reflux
- Otherwise, no acute events overnight
Frustrated this AM, very upset about not being able to go home. Continues to deny any dysphagia, odynophagia, globus, regurgitation, chest discomfort, abdominal pain, or nausea/vomiting. Screaming this morning stating that everything is fine,
refused physcial exam.
Objective
Data Reviewed
Laboratory Data:
Laboratory Results
PT 14.4 Sec (11.4-14.6) 12/11/24 04:40
INR 1.09 12/11/24 04:40
APTT 29.9 Sec (23.4-35.0) 12/11/24 04:40
Total Bilirubin 0.2 mg/dl (0.2-1.3) 12/11/24 20:48
AST 34 U/L (14-36) 12/11/24 20:48
ALT 31 U/L (0-35) 12/11/24 20:48
Alkaline Phosphatase 76 U/L (38-126) 12/11/24 20:48
Vital Signs and I&O:
Vital Signs
Temp Pulse Resp BP Pulse Ox
98.6 F 93 18 120/57 98
12/14/24 23:28 12/14/24 23:28 12/14/24 23:28 12/14/24 23:28 12/15/24 00:42
I&O
12/13/24 12/14/24 12/15/24
06:59 06:59 06:59
Intake Total 2460 / 2460 1135 / 1135 810 / 810
Balance 2460 / 2460 1135 / 1135 810 / 810
Physical Exam
Physical Exam
Refused physical exam, screaming this AM stating she wants to go home
[2024-12-15 07:14] VITALS: BP 139/53
[2024-12-15 07:44] LABS: Glucose - Point of Care 132 mg/dl (70-99)
[2024-12-15 08:35] LABS: Blood Urea Nitrogen 4 mg/dl (7-17); Calcium 8.7 mg/dl (8.4-10.2); Carbon Dioxide 27 mmol/L (22-30); Chloride 101 mmol/L (98-107); Estimated Creatinine Clearance 55 ml/min; Glucose 133 mg/dl (70-99); Potassium 3.7 mmol/L (3.5-5.1); Sodium 137 mmol/L (135-145); eGFR > 60.00
[2024-12-15] MEDS: PROTONIX 40 MG PO ×2 (08:44→19:44)
[2024-12-15] MEDS: NOVOLOG FLEXPEN-LOW RESISTANCE SC (08:46)
[2024-12-15] MEDS: MIRALAX PO (08:47)
[2024-12-15] MEDS: NOVOLOG FLEXPEN 10 UNITS SC ×3 (08:49→17:25)
[2024-12-15 10:44] LABS: % Basophils 2.1 % (0-2); % Eosinophils 1.6 % (0-6); % Immature Granulocytes 0.9 % (0-0.5); % Lymphocytes 29.3 % (20.5-51.1); % Monocytes 19.7 % (1.7-9.3); % Neutrophils 46.4 % (42.2-75.2); Absolute Basophils 0.1 10^3/uL (0-0.2); Absolute Eosinophils 0.1 10^3/uL (0-0.7); Absolute Immature Granulocytes 0.1 10^3/uL (0-0.05); Absolute Lymphocytes 1.7 10^3/uL (1.2-3.4); Absolute Monocytes 1.1 10^3/uL (0.1-0.6); Absolute Neutrophils 2.7 10^3/uL (1.4-6.5); Hemoglobin 10.2 g/dL (12.0-16.0); Mean Corp Hgb Conc. 31.9 g/dL (33.0-37.0); Mean Corpuscular Hgb 28.4 pg (27.0-31.0); Mean Corpuscular Volume 89.1 fL (81.0-99.0); Mean Platelet Volume 9.3 fL (7.4-10.4); Nucleated Red Blood Cells % 0.5 %; Platelet Count 322 10^3/uL (130-400); Red Blood Cell Count 3.59 10^6/uL (4.20-5.40); Red Cell Dist. Width 16.8 % (11.5-14.5); White Blood Cell Count 5.7 10^3/uL (4.8-10.8)
--- NOTE | 2024-12-15 11:39 | W.PN.HOSP.TC ---
Today's Communication/Plan
-
Discharge to [place] when bed available
Advance to regular diet
Aspiration precaution
Assessment / Plan
Assessment / Plan
#GI dysmotility/bezoar
-Differentials include diabetic gastroparesis, neurologic peristaltic deficits from recent stroke
-CT scan with distention of the thoracic esophagus and stomach with retained food
-No NGT placed due to significant solid component of retained food matter
-GI following, patient deferred against EGD; started on bowel regimen and PPI
-Remains with soft abdomen, denies any symptoms of abdomen or chest pain
-Has remained hemodynamically stable, no signs of aspiration
-UGI series without signs of obstruction
-Continue PO PPI BID
#Acute on chronic normocytic anemia
#Hematemesis from likely Farhana-Garcia tear
#Iron deficiency anemia
-Hemoglobin dropped from near 11-76.9 after admission; s/p 1 unit with hemoglobin 8
-Patient did have hematemesis prior to arrival concerning for Farhana-Garcia tear
-No obvious signs of rectal bleeding or recurrence of hematemesis here
-Transitioned to PO PPI as above
-Hemoglobin up to 10.2 on IV iron
#Brittle type 2 diabetes mellitus
-Recent A1c >13%; no documented microvascular disease though likely
-Possibly with diabetic gastroparesis due to the above issues, persistent hyperglycemia
-Home medications include Lantus, lispro, ISS, metformin; also on high intensity statin
-Had some hypoglycemia, Lantus decreased to 15 units nightly
-Blood glucose goal 140-180, avoid hypoglycemia
#Primary HTN
-Home medications include losartan 25 mg
-No known history of hypertensive systemic disease
-Blood pressure currently adequate
#HLD
-Likely ASCVD history with CVA, presumed cerebrovascular etiology
-Home medication includes high intensity
#H/O CVA
-Recent hospitalizations for CVA complicated by left hemiparesis
-Suspect this may be contributing to her GI dysmotility as above
-Home medications include aspirin and high intensity statin
-No history of AF/AFL; presumed cerebrovascular cause
DVT prophylaxis: SCDs
Diet: Low residue
CODE STATUS: Full Code
Disposition: Acute inpatient rehab
Anticipated Discharge: 24 - 48 hours
Subjective/Interval History
-
Date of Service: December 15, 2024
Seen and examined at the bedside. No acute events overnight. AFVSS this morning
Blood counts improved, up to 10.2. Patient frustrated at still being in the hospital today.
Denies any new complain
Objective Data
-
Labs:
Laboratory Results
12/15/24
07:30
WBC 5.7
Hgb 10.2 L D
Hct 32.0 L
Plt Count 322 D
Sodium 137
Potassium 3.7
Chloride 101
Carbon Dioxide 27
BUN 4 L
Creatinine 0.4 L
Glucose 133 H
Calcium 8.7
Vital Signs:
Vital Signs
Temp Pulse Resp BP Pulse Ox
97.9 F 75 16 139/53 97
12/15/24 07:14 12/15/24 07:14 12/15/24 07:14 12/15/24 07:14 12/15/24 09:31
I&O
12/14/24 12/15/24 12/16/24
06:59 06:59 06:59
Intake Total 1135 / 1135 810 / 810 480 / 480
Balance 1135 / 1135 810 / 810 480 / 480
Review of Systems
-
History Source: Patient
All other systems: Reviewed and negative
Physical Exam
-
General: Well Developed, No Apparent Distress, Comfortable and Other (Frail-appearing)
HEENT: Normocephalic, Atraumatic, Moist Mucous Membranes and Anicteric
Respiratory: Clear to Auscultation and Non Labored Respirations
Cardiac: Regular Rhythm and S1/S2; Negative Murmur, Rub or Gallop
GI: Soft, Nontender, Nondistended and Normal Bowel Sounds
Musculoskeletal: No Clubbing, No Cyanosis and No Edema
Skin: Warm and Dry; Negative Rash
Neuro: AO x 3 and Other (Chronic left hemiparesis; no new FND, cranial nerves intact)
Psych: Calm
[2024-12-15 12:15] LABS: Glucose - Point of Care 358 mg/dl (70-99)
[2024-12-15] MEDS: NOVOLOG FLEXPEN-LOW RESISTANCE 5 UNITS SC (12:51)
[2024-12-15] MEDS: FERRLECIT 110 MG IV (14:12)
[2024-12-15 15:47] VITALS: BP 125/44
[2024-12-15 16:58] LABS: Glucose - Point of Care 191 mg/dl (70-99)
[2024-12-15] MEDS: NOVOLOG FLEXPEN-LOW RESISTANCE 1 UNITS SC (17:25)
--- NOTE | 2024-12-15 18:22 | PTCARENOTE ---
Pt had a moderate alia colored bm. denies pain. Dr. barr made aware. plan of care ongoing.
[2024-12-15 21:52] LABS: Glucose - Point of Care 164 mg/dl (70-99)
[2024-12-15] MEDS: LANTUS 0.15 UNITS SC (22:05)
[2024-12-15 23:26] VITALS: BP 134/57
[2024-12-16 06:00] VITALS: BMI 23.1
[2024-12-16 07:27] LABS: Glucose - Point of Care 224 mg/dl (70-99)
[2024-12-16 07:30] VITALS: BP 128/50
[2024-12-16] MEDS: MIRALAX PO (08:29)
[2024-12-16] MEDS: NOVOLOG FLEXPEN-LOW RESISTANCE 2 UNITS SC ×2 (08:29→12:48)
[2024-12-16] MEDS: PROTONIX 40 MG PO ×2 (08:30→20:26)
[2024-12-16] MEDS: NOVOLOG FLEXPEN 10 UNITS SC ×3 (08:30→17:29)
--- NOTE | 2024-12-16 11:54 | W.PN.HOSP.TC ---
Today's Communication/Plan
-
Continue twice daily PPI
Full diet with aspiration precautions
Monitor bowel status
Discharge to [facility] (possibly tomorrow if bed available)
Assessment / Plan
Assessment / Plan
#GI dysmotility/bezoar
-Differentials include diabetic gastroparesis, neurologic peristaltic deficits from recent stroke
-CT scan with distention of the thoracic esophagus and stomach with retained food
-No NGT placed due to significant solid component of retained food matter
-GI following, patient deferred against EGD; started on bowel regimen and PPI
-Remains with soft abdomen, denies any symptoms of abdomen or chest pain
-Has remained hemodynamically stable, no signs of aspiration
-UGI series without signs of obstruction
-Continue PO PPI BID
#Acute on chronic normocytic anemia
#Hematemesis from likely Farhana-Garcia tear
#Iron deficiency anemia
-Hemoglobin dropped from near 11-76.9 after admission; s/p 1 unit with hemoglobin 8
-Patient did have hematemesis prior to arrival concerning for Farhana-Garcia tear
-No obvious signs of rectal bleeding or recurrence of hematemesis here
-Transitioned to PO PPI as above
-Hemoglobin up to 10.2 on IV iron
#Brittle type 2 diabetes mellitus
-Recent A1c >13%; no documented microvascular disease though likely
-Possibly with diabetic gastroparesis due to the above issues, persistent hyperglycemia
-Home medications include Lantus, lispro, ISS, metformin; also on high intensity statin
-Had some hypoglycemia, Lantus decreased to 15 units nightly
-Blood glucose goal 140-180, avoid hypoglycemia
#Primary HTN
-Home medications include losartan 25 mg
-No known history of hypertensive systemic disease
-Blood pressure currently adequate
#HLD
-Likely ASCVD history with CVA, presumed cerebrovascular etiology
-Home medication includes high intensity
#H/O CVA
-Recent hospitalizations for CVA complicated by left hemiparesis
-Suspect this may be contributing to her GI dysmotility as above
-Home medications include aspirin and high intensity statin
-No history of AF/AFL; presumed cerebrovascular cause
DVT prophylaxis: SCDs
Diet: Low residue
CODE STATUS: Full Code
Disposition: Acute inpatient rehab, possibly 12/17/2024
Anticipated Discharge: Within 24 hours
Subjective/Interval History
-
Date of Service: December 16, 2024
Seen and examined at bedside. No acute events reported overnight. AFVSS today
Patient feels well and is looking forward to her walk around the hallway
Denies any new complaints. Plan for [facility] potentially
Objective Data
-
Vital Signs:
Vital Signs
Temp Pulse Resp BP Pulse Ox
98.5 F 89 16 128/50 100
12/16/24 07:30 12/16/24 07:30 12/16/24 07:30 12/16/24 07:30 12/16/24 10:49
I&O
12/15/24 12/16/24 12/17/24
06:59 06:59 06:59
Intake Total 810 / 810 1530 / 1530
Balance 810 / 810 1530 / 1530
Review of Systems
-
History Source: Patient
All other systems: Reviewed and negative
Physical Exam
-
General: Well Developed, Well Nourished, No Apparent Distress, Comfortable and Other
HEENT: Normocephalic, Atraumatic and Moist Mucous Membranes
Respiratory: Clear to Auscultation and Non Labored Respirations
Cardiac: Regular Rhythm and S1/S2; Negative Murmur, Rub or Gallop
GI: Soft, Nontender, Nondistended and Normal Bowel Sounds
Musculoskeletal: No Clubbing, No Cyanosis and No Edema
Skin: Warm and Dry; Negative Rash
Neuro: AO x 3, Central Nerve's Intact and Other (Chronic left sided extremity deficits, no new FND)
Psych: Calm
[2024-12-16 12:22] LABS: Glucose - Point of Care 240 mg/dl (70-99)
[2024-12-16] MEDS: FERRLECIT IV (14:05)
[2024-12-16] MEDS: FERRLECIT 110 MG IV (14:57)
[2024-12-16 15:17] VITALS: BP 126/52
[2024-12-16 16:47] LABS: Glucose - Point of Care 132 mg/dl (70-99)
[2024-12-16] MEDS: NOVOLOG FLEXPEN-LOW RESISTANCE SC (17:29)
[2024-12-16] MEDS: LIPITOR 40 MG PO (17:29)
[2024-12-16 21:06] LABS: Glucose - Point of Care 221 mg/dl (70-99)
[2024-12-16] MEDS: LANTUS 0.15 UNITS SC (21:13)
[2024-12-16 22:42] VITALS: BP 133/61
[2024-12-17 04:37] VITALS: BMI 23.0
[2024-12-17 07:07] VITALS: BP 129/53
[2024-12-17 07:53] LABS: Glucose - Point of Care 174 mg/dl (70-99)
[2024-12-17] MEDS: PROTONIX 40 MG PO ×2 (08:34→19:49)
[2024-12-17] MEDS: MIRALAX PO (08:34)
[2024-12-17] MEDS: LOW STRENGTH ASPIRIN 81 MG PO (08:34)
[2024-12-17] MEDS: NOVOLOG FLEXPEN-LOW RESISTANCE 1 UNITS SC (08:36)
[2024-12-17] MEDS: NOVOLOG FLEXPEN SC (09:07)
[2024-12-17 11:46] VITALS: BP 124/67; BP 127/65; PULSE 103; O2SAT 99
[2024-12-17 11:49] LABS: Glucose - Point of Care 266 mg/dl (70-99)
[2024-12-17] MEDS: NOVOLOG FLEXPEN-LOW RESISTANCE 3 UNITS SC (11:49)
[2024-12-17] MEDS: NOVOLOG FLEXPEN 10 UNITS SC ×2 (11:50→18:07)
--- NOTE | 2024-12-17 12:50 | W.PN.HOSP.TC ---
Today's Communication/Plan
-
Tolerates diet.
Medically optimized for discharge to acute rehab pending insurance authorization.
Assessment / Plan
Assessment / Plan
#GI dysmotility/bezoar
-Differentials include diabetic gastroparesis, neurologic peristaltic deficits from recent stroke
-CT scan with distention of the thoracic esophagus and stomach with retained food
-No NGT placed due to significant solid component of retained food matter
-GI following, patient deferred against EGD; started on bowel regimen and PPI
-Remains with soft abdomen, denies any symptoms of abdomen or chest pain
-Has remained hemodynamically stable, no signs of aspiration
-UGI series without signs of obstruction
-Continue PO PPI BID
#Acute on chronic normocytic anemia
#Hematemesis from likely Farhana-Garcia tear
#Iron deficiency anemia
-Hemoglobin dropped from near 11-76.9 after admission; s/p 1 unit with hemoglobin 8
-Patient did have hematemesis prior to arrival concerning for Farhana-Garcia tear
-No obvious signs of rectal bleeding or recurrence of hematemesis here
-Transitioned to PO PPI as above
-Hemoglobin up to 10.2 on IV iron
#Brittle type 2 diabetes mellitus
-Recent A1c >13%; no documented microvascular disease though likely
-Possibly with diabetic gastroparesis due to the above issues, persistent hyperglycemia
-Home medications include Lantus, lispro, ISS, metformin; also on high intensity statin
-Had some hypoglycemia, Lantus decreased to 15 units nightly
-Blood glucose goal 140-180, avoid hypoglycemia
#Primary HTN
-Home medications include losartan 25 mg
-No known history of hypertensive systemic disease
-Blood pressure currently adequate
#HLD
-Likely ASCVD history with CVA, presumed cerebrovascular etiology
-Home medication includes high intensity
#H/O CVA
-Recent hospitalizations for CVA complicated by left hemiparesis
-Suspect this may be contributing to her GI dysmotility as above
-Home medications include aspirin and high intensity statin
-No history of AF/AFL; presumed cerebrovascular cause
DVT prophylaxis: SCDs
Diet: Low residue
CODE STATUS: Full Code
Disposition: Acute inpatient rehab, possibly 12/17/2024
Anticipated Discharge: Within 24 hours
Subjective/Interval History
-
Date of Service: December 17, 2024
Objective Data
-
Vital Signs:
Vital Signs
Temp Pulse Resp BP Pulse Ox
98.9 F 98 16 129/53 93
12/17/24 07:07 12/17/24 07:07 12/17/24 07:07 12/17/24 07:07 12/17/24 07:30
I&O
12/16/24 12/17/24 12/18/24
06:59 06:59 06:59
Intake Total 1530 / 1530 930 / 930 480 / 480
Balance 1530 / 1530 930 / 930 480 / 480
Physical Exam
-
General: Well Developed, Well Nourished, No Apparent Distress, Comfortable and Other
HEENT: Normocephalic, Atraumatic and Moist Mucous Membranes
Respiratory: Clear to Auscultation and Non Labored Respirations
Cardiac: Regular Rhythm and S1/S2; Negative Murmur, Rub or Gallop
GI: Soft, Nontender, Nondistended and Normal Bowel Sounds
Musculoskeletal: No Clubbing, No Cyanosis and No Edema
Skin: Warm and Dry; Negative Rash
Neuro: AO x 3, Central Nerve's Intact and Other (Chronic left sided extremity deficits, no new FND)
Psych: Calm
--- NOTE | 2024-12-17 14:38 | CM ---
Addendum entered by Marcie Santa 12/17/24 16:59:
report# [phone]
fax# [phone]
Addendum entered by Marcie Santa 12/17/24 16:58:
TC from [facility]
MDR approved Acute rehab
Auth# [id number]
admit 12/17/24, LCD 12/23/24, NRD 12/24/24.
Updates to [phone]
Addendum entered by Marcie Santa 12/17/24 15:15:
Spoke with Donna at [facility], acute rehab authorization requested.
Pended to [facility] for review.
Await TCB.
Original Note:
Plan for Acute rehab today.
Needs [facility] insurance auth.
Await updated therapy notes.
[facility] NPI#[id number]
Dr Yo NPI# [id number]
[2024-12-17] MEDS: FERRLECIT 110 MG IV (15:12)
[2024-12-17 15:18] VITALS: BP 154/64
[2024-12-17 16:47] LABS: Glucose - Point of Care 133 mg/dl (70-99)
[2024-12-17] MEDS: LIPITOR 40 MG PO (18:06)
[2024-12-17] MEDS: NOVOLOG FLEXPEN-LOW RESISTANCE SC (18:08)
[2024-12-17 20:00] VITALS: BP 120/51
== END 2024-12-17 20:34 | DRG 73 ==
LOC: 2 NORTH 03:24
PROVIDERS: Emergency Medicine; Internal Medicine; Nurse Practitioner Family; ADMITTING PHYSICIAN Internal Medicine; ATTENDING PHYSICIAN Internal Medicine; CONSULT PHYSICIAN Internal Medicine Gastroenterology; CONSULT PHYSICIAN Physical Medicine & Rehabilitation; EMERGENCY PHYSICIAN Emergency Medicine
DX: E11.43 Type 2 diabetes mellitus with diabetic autonomic (poly)neuropathy (principal); K22.6 Gastro-esophageal laceration-hemorrhage syndrome; I69.354 Hemiplegia and hemiparesis following cerebral infarction affecting left non-dominant side; J98.11 Atelectasis; N17.9 Acute kidney failure, unspecified; I5A Non-ischemic myocardial injury (non-traumatic); D62 Acute posthemorrhagic anemia; E11.10 Type 2 diabetes mellitus with ketoacidosis without coma; I10 Essential (primary) hypertension; E78.00 Pure hypercholesterolemia, unspecified; K30 Functional dyspepsia; E61.1 Iron deficiency; Z79.82 Long term (current) use of aspirin; K22.4 Dyskinesia of esophagus; Z79.4 Long term (current) use of insulin; Z87.891 Personal history of nicotine dependence; Z91.81 History of falling
CPT/HCPCS: 71045; 71275; 74246; 74248; 80048; 80053; 82607; 82728; 82746; 82947; 82962; 83540; 83550; 83880; 84484; 85014; 85018; 85025; 85027; 85610; 85730; 86850; 86900; 86901; 86920; 93005; 96374; 96375; 97112; 97116; 97162; 97166; 97530; 97535; 99285; J2916; P9016; Q9967